=== PATIENT | female | born 1945 | race Caucasian/White ===

== ENCOUNTER 2016-06-25 09:53 | Inpatient (IN) | payer MEDICARE ==
[2016-06-25] VITALS (19 sets, daily range): BP systolic 132–251; BP diastolic 54–116; PULSE 74–106; RESP 10–24; TEMP 95.9–98.4; O2SAT 96–100
[~2016-06-25] VITALS: Ht 170.2 cm; Wt 70.4 kg
[~2016-06-25 09:53] MED LIST: CEPH500C3 PO
[2016-06-25] MEDS ORDERED: ETOMIDATE 20 MG/10 ML VIAL ONE (10:02)
[2016-06-25] MEDS ORDERED: PROPOFOL 1000 MG/100 ML INJ 100 ML ONE (10:02)
[2016-06-25 10:14] LABS: I-STAT SODIUM 138 MMOL/L (138-146)
[2016-06-25 10:15] LABS: AUTOMATED NEUTROPHIL # 11.8 TH/MM3 (1.8-7.7); BASOPHIL # 0.2 TH/MM3 (0-0.2); EOSINOPHIL # 0.6 TH/MM3 (0-0.4); EOSINOPHIL % 3.2 % (0.0-4.0); HEMO FLAGS DIFF FINAL; LYMPH % 27.4 % (9.0-44.0); LYMPHOCYTE # 5.1 TH/MM3 (1.0-4.8); MEAN CELL VOLUME 101.2 FL (80.0-100.0); MEAN CORPUSCULAR HEMOGLOBIN 34.5 PG (27.0-34.0); MEAN CORPUSCULAR HGB CONC 34.1 % (32.0-36.0); MONO % 5.2 % (0.0-8.0); NEUT % 63.2 % (16.0-70.0); PLATELET COUNT 364 TH/MM3 (150-450); RED BLOOD COUNT 3.76 MIL/MM3 (4.00-5.30); RED CELL DISTRIBUTION WIDTH 14.4 % (11.6-17.2); WHITE BLOOD COUNT 18.7 TH/MM3 (4.0-11.0)
[2016-06-25] MEDS ORDERED: ETOMIDATE 20 MG/10 ML VIAL IV PUSH ONE (10:15)
[2016-06-25] MEDS ORDERED: PROPOFOL 1000 MG/100 ML INJ 100 ML IV SCH ×5 (10:15→15:30)
[2016-06-25] MEDS ORDERED: niCARdipine INJ 25 MG in SODIUM CHLOR 0.9% 250 ML INJ 250 ML IV SCH (10:15)
[2016-06-25 10:26] LABS: APTT (PATIENT) 25.9 SEC (24.3-30.1); INTERNATIONAL NORMALIZED RATIO 0.9 RATIO
--- NOTE | 2016-06-25 10:33 | PD ---
HPI Chief Complaint: Stroke Alert Time Seen by Provider: 10:00 Travel History International Travel<30 days: No (unable to obtain) Contact w/Intl Traveler<30days: No (unable to obtain) Traveled to known affect area: No (unable to obtain) History of Present Illness HPI 70-year-old female was brought in by EMS for stroke alert. Patient was sitting with her friends at her condo and started complaining of headache. Patient started having slow speech and right-sided weakness subsequently. EMS was called. Patient was brought to the ED for evaluation. Patient started having decreasing in mentation and speech on the way to the ED. Patient unresponsive upon arrival to the ED. Unable to obtain past medical history except possible history of hypertension. PFSH Past Medical History Menopausal: Yes Past Surgical History Hysterectomy: Yes Social History Alcohol Use: Yes (OCCASIONAL) Tobacco Use: Yes (1 PPD) Allergies-Medications (Allergen,Severity, Reaction): Coded Allergies: No Known Allergies (Unverified , 12/31/15) Reported Meds & Prescriptions Reported Meds & Active Scripts Active Keflex (Cephalexin Monohydrate) 500 Mg Cap 500 Mg PO QID Review of Systems ROS Limitations: Altered Mental Status, Unresponsive Physical Exam Narrative GENERAL: Well-nourished, well-developed patient. SKIN: Warm and dry. HEAD: Normocephalic. EYES: No scleral icterus. No injection or drainage. Pupils are pinpoint, sluggishly reactive. NECK: Supple, trachea midline. No JVD or lymphadenopathy. CARDIOVASCULAR: Regular rate and rhythm without murmurs, gallops, or rubs. RESPIRATORY: Breath sounds equal bilaterally. No accessory muscle use. GASTROINTESTINAL: Abdomen soft, non-tender, nondistended. MUSCULOSKELETAL: No cyanosis, or edema. BACK: No obvious deformity. Neurologic exam: Patient is unresponsive. Pupils pinpoint and sluggish reactive. Patient has occasional movement of the head and left arm. Deep tendon reflexes 1+ and equal. Positive Babinski bilaterally. Data Data Last Documented VS Vital Signs Date Time Temp Pulse Resp B/P Pulse Ox O2 Delivery O2 Flow Rate FiO2 06/25/16 10:55 100 Ventilator 40 06/25/16 10:00 10 5 06/25/16 09:55 106 251/116 Orders Diet Npo (06/25/16 Lunch) Activity Bed Rest (06/25/16 ) Electrocardiogram (06/25/16 ) I-Stat Creatinine (06/25/16 10:01) I-Stat Profile (06/25/16 10:01) Prothrombin Time / Inr (Pt) (06/25/16 10:01) Act Partial Throm Time (Ptt) (06/25/16 10:01) Complete Blood Count With Diff (06/25/16 10:01) Fibrinogen (06/25/16 10:01) Creatine Kinase (Cpk) (06/25/16 10:01) Troponin I (06/25/16 10:01) Ua Includes Microscopic (06/25/16 10:01) Drug Screen, Random Urine (06/25/16 10:01) Type And Screen (06/25/16 10:01) Ct Brain W/O Iv Contrast(Rout) (06/25/16 ) Beta Hcg (Quant/Titer) (06/25/16 10:01) Consult Neurology (06/25/16 ) Blood Glucose (06/25/16 10:01) Ecg Monitoring (06/25/16 10:01) Neuro Checks Q2HX12,Q4H (06/25/16 10:01) Nursing Bedside Swallow Assess .ONCE (06/25/16 10:01) Iv Access Insert/Monitor (06/25/16 10:01) NPO (06/25/16 10:01) Oximetry (06/25/16 10:01) Oxygen Administration (06/25/16 10:01) Resp Oxygen Lee C Titrat 1-4 L (06/25/16 10:01) Cath For Specimen (06/25/16 10:01) Etomidate Inj (Amidate Inj) (06/25/16 10:15) Propofol 1000 Mg/100 Ml Inj (Diprivan 10 (06/25/16 10:15) Propofol 1000 Mg/100 Ml Inj (Diprivan 10 (06/25/16 10:15) ^ Infusion (06/25/16 10:01) Propofol 1000 Mg/100 Ml Inj (Diprivan 10 (06/25/16 10:15) ^ Infusion (06/25/16 10:01) RASS (06/25/16 10:01) Neurological Rass Scale GIBSON.Q2H (06/25/16 10:01) Nicardipine Inj (Cardene Inj) (06/25/16 10:15) Propofol 1000 Mg/100 Ml Inj (Diprivan 10 (06/25/16 10:02) Etomidate Inj (Amidate Inj) (06/25/16 10:02) (Hub Use Only)Inp Phy Cons/Ref (06/25/16 ) Urinary Catheter Insert/Apply (06/25/16 10:34) Andrea-Gastric Tube Insert/Mon (06/25/16 10:34) Mannitol Inj (Osmitrol Inj) (06/25/16 11:00) Labs Laboratory Tests Test 06/25/16 09:57 White Blood Count 18.7 TH/MM3 Red Blood Count 3.76 MIL/MM3 Hemoglobin 12.9 GM/DL Bedside Hemoglobin 13.3 G/DL Hematocrit 38.0 % Bedside Hematocrit 39.0 % Mean Corpuscular Volume 101.2 FL Mean Corpuscular Hemoglobin 34.5 PG Mean Corpuscular Hemoglobin 34.1 % Concent Red Cell Distribution Width 14.4 % Platelet Count 364 TH/MM3 Mean Platelet Volume 9.6 FL Neutrophils (%) (Auto) 63.2 % Lymphocytes (%) (Auto) 27.4 % Monocytes (%) (Auto) 5.2 % Eosinophils (%) (Auto) 3.2 % Basophils (%) (Auto) 1.0 % Neutrophils # (Auto) 11.8 TH/MM3 Lymphocytes # (Auto) 5.1 TH/MM3 Monocytes # (Auto) 1.0 TH/MM3 Eosinophils # (Auto) 0.6 TH/MM3 Basophils # (Auto) 0.2 TH/MM3 CBC Comment DIFF FINAL Differential Comment Prothrombin Time 10.0 SEC Prothromb Time International 0.9 RATIO Ratio Activated Partial 25.9 SEC Thromboplast Time Fibrinogen 327 mg/dL Bedside Sodium 138 MMOL/L Bedside Potassium 3.0 MMOL/L Bedside Chloride 106 MMOL/L Bedside Blood Urea Nitrogen 21 MG/DL Bedside Creatinine 1.2 MG/DL Bedside Glucose 262 MG/DL Total Creatine Kinase 41 U/L Troponin I LESS THAN 0.02 NG/ML Human Chorionic Gonadotropin, 2 MIU/ML Quant Blood Type AB POSITIVE Antibody Screen NEGATIVE Blood Bank Comment [facility] Medical Decision Making Medical Screen Exam Complete: Yes Emergency Medical Condition: Yes Interpretation(s) EKG shows sinus rhythm occasional PVCs. 10:[address] scan of the brain shows multicompartment hemorrhage mainly intraventricular and posterior fossa. Possible evolving infarct brainstem structure. Differential Diagnosis Differential diagnosis including TIA, CVA, dehydration, electrolyte imbalance, sepsis. Narrative Course 70-year-old female with headache, slurred speech, right-sided weakness, became unresponsiveness subsequently. Patient's hypertensive. Patient was intubated in the ED. Propofol drip started. Cardizem drip started. Critical Care Narrative Aggregate critical care time was 60 minutes. Time to perform other separately billable procedures was not included in the critical care time. My time did not include minutes spent treating any other patients simultaneously or on activities that did not directly contribute to the patient's treatment. The services I provided to this patient were to treat and/or prevent clinically significant deterioration that could result in: I provided critical care services requiring my management, as noted below: Chart data review, documentation time, medication orders and management, vital sign assessments/reviewing monitor data, ordering and reviewing lab tests, ordering and interpreting/reviewing x-rays and diagnostic studies, care of the patient and discussion of the patient with the admitting physicians. Procedures Procedure Narrative After the risks and benefits were discussed the following procedure was performed: INTUBATION: The patient was put in optimal position for the procedure. Rapid sequence intubation was initiated by me using 20 milligrams of etomidate IV . The patient was intubated with a 8 cuffed endotracheal tube. Tube placement was confirmed by visualization of the tube and balloon passing through the cords , capnometry and subsequent chest x-ray. Breath sounds were equal and well aerated bilaterally postintubation. No breath sounds over stomach. Patient tolerated procedure well. Diagnosis Primary Impression: Intracranial hemorrhage Additional Impressions: Hypertensive crisis Respiratory failure Qualified Code: J96.00 - Acute respiratory failure, unspecified whether with hypoxia or hypercapnia Admitting Information Admitting Physician Requests: Admit Ahsan Lucas MD Jun 25, 2016 10:33
[2016-06-25 10:34] LABS: BETA HCG QUANT 2 MIU/ML (0-5)
[2016-06-25 10:38] LABS: CREATINE KINASE 41 U/L (26-192)
--- NOTE | 2016-06-25 10:52 | RADRPT ---
EXAM DATE/TIME: 06/25/2016 10:14 [facility] COMPARISON: No previous studies available for comparison. INDICATIONS : Stroke alert, headache, slurred speech, bilateral extremity weakness. RADIATION DOSE: 56.35 CTDIvol (mGy) This report was called by Nany to Dr. Lucas at 1022 MEDICAL HISTORY : None SURGICAL HISTORY : None. ENCOUNTER: Initial ACUITY: 1 day PAIN SCALE: Non-responsive LOCATION: cranial TECHNIQUE: Multiple contiguous axial images were obtained of the head. Using automated exposure control and adj ustment of the mA and/or kV according to patient size, radiation dose was kept as low as reasonably a chievable to obtain optimal diagnostic quality images. FINDINGS: There is hemorrhage present within the lateral, third and fourth ventricles in addition to subarachno id blood in the posterior fossa. Also potentially parenchymal hemorrhages in the cerebellar hemispher es. There is blood in the foramen magnum. The brainstem is moderately hypodense throughout raising co ncern for infarction. The supratentorial brain is additionally notable for patchy moderate diminished attenuation in periventricular white matter which may be chronic. The extracranial structures are grossly benign and intact. CONCLUSION: Grossly abnormal brain appearance with multicompartment hemorrhage, mainly intraventricular and poste rior fossa. Diffusely diminished attenuation of the brainstem structures concerning for evolving infa rction. Followup evaluation, ideally with contrasted brain MRI and MRA would be recommended to assist with ch aracterization of the findings. Eduardo Ayon MD on June 25, 2016 at 10:22 Board Certified Radiologist. This report was verified electronically.
[2016-06-25] MEDS ORDERED: MANNITOL INJ 500 ML IV ONE (11:00)
[2016-06-25] MEDS ORDERED: MANNITOL INJ 50 ML ONE ×2 (11:08→11:26)
[2016-06-25] MEDS ORDERED: BUPIVACAINE/EPINEPHRINE 0.5% 50 ML VIAL ONE (11:25)
[2016-06-25] MEDS ORDERED: THROMBIN (TOPICAL) 5,000 UNIT VIAL ONE (11:26)
[2016-06-25] MEDS ORDERED: GENTAMICIN SULFATE 80 MG/2 ML VIAL ONE (11:26)
[2016-06-25] MEDS ORDERED: GELFOAM SIZE 100 ONE (11:26)
--- NOTE | 2016-06-25 11:40 | EKG ---
Date Performed: 06/25/2016 Time Performed: 09:56:29 PTAGE: 70 years EKG: Sinus rhythm WITH OCCASIONAL VENTRICULAR PREMATURE COMPLEXES Mild nonspecific ST-T wave changes BORDERLINE ECG CO MPARED TO PRIOR ELECTROCARDIOGRAM, Premature ectopic beats and mild ST segment changes are present. PREVIOUS TRACING : 05/25/2011 13.39 DOCTOR: Vasu Odell Interpretating Date/Time 06/25/2016 11:38:38
[2016-06-25 11:44] LABS: BLOOD, URINE SMALL (NEG); GLUCOSE,URINE 300 mg/dL (NEG); KETONE, URINE NEG (NEG); NITRITE,URINE NEG (NEG); PH, URINE 7.5 (5.0-8.5); URINE COLOR LIGHT-YELLOW (YELLW/STRAW)
[2016-06-25 11:51] LABS: AMPHETAMINE, URINE NEG (NEG); BARBITURATES, URINE NEG (NEG); COCAINE, URINE NEG (NEG)
--- NOTE | 2016-06-25 11:57 | HHI.HP ---
[facility] Service Critical Care Medicine Primary Care Physician Unknown Admission Diagnosis intracranial hemorrhage. Hypertensive crisis. Diagnosis: (1) Intracranial hemorrhage Diagnosis: Principal (2) Hypertensive crisis Diagnosis: Principal (3) Respiratory failure Diagnosis: Principal (4) Leukocytosis Diagnosis: Principal (5) Hypokalemia Diagnosis: Principal (6) Hyperglycemia Diagnosis: Principal (7) Tobacco abuse Diagnosis: Principal (8) ETOHism Diagnosis: Principal (9) Macrocytosis Diagnosis: Principal Chief Complaint: Altered Mental status Travel History International Travel<30 Days: No (unable to obtain) Contact w/Intl Traveler <30 Da: No (unable to obtain) Traveled to Known Affected Are: No (unable to obtain) History of Present Illness This is a 70-year-old female. Date of admission 06/25/2016. Asked medical history includes hypertension, prior CVA 4 years ago. According to friends at bedside, patient smokes one pack per day and has been drinking alcohol recently. She does not take any home medications. She presents to [facility] ED for stroke alert. She was last seen in her normal state of health approximately 9 AM. Patient was sitting with her friends at her condo and started complaining of headache. Patient started having slow slurred speech and right-sided weakness subsequently. EMS was called. Patient was brought to the ED for evaluation. Patient started having decreasing in mentation and speech on the way to the ED. Patient unresponsive upon arrival to the ED. Patient received 20 mg etomidate and was emergently intubated by ED physician. CT head performed stat revealed blood in the lateral, third and fourth ventricles, subarachnoid hemorrhage in the posterior fossa and blood and the foramen magnum. Neurosurgery was consulted and plans to go to the OR. 100 g of mannitol provided stat 1. Cardene drip initiated to maintain a systolic blood pressure less than 150. Upon examination, patient has a day, pinpoint sluggish pupils and withdraws to pain left greater right upper and lower extremity Review of Systems ROS Limitations: Intubated Past Family Social History Allergies: Coded Allergies: No Known Allergies (Unverified , 12/31/15) Past Medical History Hypertension Past Surgical History Hysterectomy Reported Medications None Active Ordered Medications Reviewed in EMR Family History Mother and father is noncontributory. Social History 1 pack per day tobacco. Positive EtOH use. Physical Exam Vital Signs Vital Signs Date Time Temp Pulse Resp B/P Pulse Ox O2 Delivery O2 Flow Rate FiO2 06/25/16 11:15 76 14 164/73 100 Ventilator 40 06/25/16 11:04 40 06/25/16 11:03 100 Ventilator 40 06/25/16 10:55 100 Ventilator 40 06/25/16 10:45 86 14 165/77 100 Ventilator 40 06/25/16 10:29 100 100 06/25/16 10:29 100 40 06/25/16 10:15 97.6 82 14 225/102 100 Ventilator 40 06/25/16 10:00 10 97 Nasal Cannula 5 06/25/16 09:55 106 10 251/116 96 Physical Exam GENERAL: 70-year-old female, critically ill currently orotracheally intubated SKIN: Warm and dry. No rash HEAD: Atraumatic. Normocephalic. EYES: Pupils equal and round around 2 mm bilaterally and sluggish. No scleral icterus. No injection or drainage. ENT: No nasal bleeding or discharge. Mucous membranes pink and moist. NECK: Trachea midline. No JVD. CARDIOVASCULAR: Regular rate and rhythm. S1, S2. Faint 1/6 systolic murmur RESPIRATORY:. Clear to auscultation. Breath sounds equal bilaterally. GASTROINTESTINAL: Abdomen soft, non-tender, nondistended. Hypoactive bowel sounds are appreciated MUSCULOSKELETAL: Extremities without significant peripheral edema. No obvious deformities. NEUROLOGICAL: Appears to have a right facial droop. Pupils are pinpoint and minimally reactive/sluggish bilateral. Positive gag. Withdraws to pain and left upper greater than right upper extremity. Upper toes. Laboratory Laboratory Tests Test 06/25/16 06/25/16 09:57 10:50 White Blood Count 18.7 Red Blood Count 3.76 Hemoglobin 12.9 Bedside Hemoglobin 13.3 Hematocrit 38.0 Bedside Hematocrit 39.0 Mean Corpuscular Volume 101.2 Mean Corpuscular Hemoglobin 34.5 Mean Corpuscular Hemoglobin 34.1 Concent Red Cell Distribution Width 14.4 Platelet Count 364 Mean Platelet Volume 9.6 Neutrophils (%) (Auto) 63.2 Lymphocytes (%) (Auto) 27.4 Monocytes (%) (Auto) 5.2 Eosinophils (%) (Auto) 3.2 Basophils (%) (Auto) 1.0 Neutrophils # (Auto) 11.8 Lymphocytes # (Auto) 5.1 Monocytes # (Auto) 1.0 Eosinophils # (Auto) 0.6 Basophils # (Auto) 0.2 CBC Comment DIFF FINAL Differential Comment Prothrombin Time 10.0 Prothromb Time International 0.9 Ratio Activated Partial 25.9 Thromboplast Time Fibrinogen 327 Bedside Sodium 138 Bedside Potassium 3.0 Bedside Chloride 106 Bedside Blood Urea Nitrogen 21 Bedside Creatinine 1.2 Bedside Glucose 262 Total Creatine Kinase 41 Troponin I LESS THAN 0.02 Human Chorionic Gonadotropin, 2 Quant Blood Type AB POSITIVE Antibody Screen NEGATIVE Blood Bank Comment Urine Color LIGHT-YELLOW Urine Turbidity CLEAR Urine pH 7.5 Urine Specific [place] 1.008 Urine Protein 300 Urine Glucose (UA) 300 Urine Ketones NEG Urine Occult Blood SMALL Urine Nitrite NEG Urine Bilirubin NEG Urine Urobilinogen LESS THAN 2.0 Urine Leukocyte Esterase NEG Urine RBC 13 Urine WBC 1 Microscopic Urinalysis Comment Urine Opiates Screen NEG Urine Barbiturates Screen NEG Urine Amphetamines Screen NEG Urine Benzodiazepines Screen NEG Urine Cocaine Screen NEG Urine Cannabinoids Screen NEG Result Diagram: 06/25/16 0957 Imaging Last Impressions Head CT 06/25/16 0000 Signed Impressions: Service Date/Time: June 10:14 - CONCLUSION: Grossly abnormal brain appearance with multicompartment hemorrhage, mainly intraventricular and posterior fossa. Diffusely diminished attenuation of the brainstem structures concerning for evolving infarction. Followup evaluation, ideally with contrasted brain MRI and MRA would be recommended to assist with characterization of the findings. Eduardo Ayon MD Assessment and Plan Assessment and Plan Neuro/Psych: Acute intracranial hemorrhage - lateral, third and fourth ventricles Subarachnoid hemorrhage posterior fossa with blood and the foramen magnum EtOH Patient is currently on propofol/fentanyl for sedation/analgesia while intubated Goal of RASS -2 Daily sedation vacation when okay with neurosurgery CT head revealed blood in the lateral, third and fourth ventricle. Subarachnoid hemorrhage within the posterior fossa and blood in the foramen magnum. Received 100 g mannitol in ED. Neurosurgery/Dr. Luo to or now Mannitol 12.5 every 8/3% saline at 20 cc now. Gohlke sodium 150-155 and serum osm ~ 310 Thiamine/multivitamin and folate daily for EtOH. CV: Hypertensive emergency History of hypertension Patient currently on Cardene drip to maintain systolic blood pressure less than 150 Check 2-D echocardiogram. As needed labetalol in attempt to wean off Cardene drip. Patient not on any home antihypertensives. Resp: Acute respiratory failure secondary to hemorrhagic CVA Tobaccoism ACV 16/500/5/100 Ventilator bundle Bronchodilator therapy as needed Tobacco cessation education was provided when appropriate Chest x-ray on admission revealed no acute cardio pulmonary findings GI: Initiate tube feeding with vital 1.5 goal 50 cc an hour. Protonix for GI prophylaxis while intubated Colace/as needed Senokot for bowel regimen : Tovar be placed for accurate I's and O's in critically ill patient Endo: Hyperglycemia Sliding-scale insulin with Accu-Cheks every 6 to maintain euglycemia. Median regimen. Follow-up on hemoglobin A1c Renal: Acute kidney injury creatinine 1.2 Patient will be hydrated with normal saline at 84 cc an hour. Monitor Urine output closely. Avoid nephrotoxic drugs Heme: Leukocytosis Macrocytosis Likely leukemoid type reaction. Monitor CBC in a.m. Coags normal Investigate macrocytosis with B12, folate and TSH and peripheral smear if indicated. ID: Monitor for infection UA reveals no etiology FEN: Hypokalemia Replace electrolytes per ICU electrolyte protocol. MSK: PT/OT evaluate and treat Critical Care: The total critical care time was 55 minutes. Time to perform other separately billable procedures was not included in the critical care time. Code Status Full code Discussed Condition With Dr. Lucas/ED physician. Care plan discussed. All questions answered. Problem Qualifiers (1) Respiratory failure: Qualified Code: J96.00 - Acute respiratory failure, unspecified whether with hypoxia or hypercapnia (2) Leukocytosis: Qualified Code: D72.829 - Leukocytosis, unspecified type Kareem Zavala MD Jun 25, 2016 11:57
[2016-06-25] MEDS ORDERED: POTASSIUM PHOSPHATE MONOBASIC 500 MG TAB PO/TUBE PRN (12:00)
[2016-06-25] MEDS ORDERED: MAGNESIUM OXIDE 400 MG TAB PO PRN (12:00)
[2016-06-25] MEDS ORDERED: ePHEDrine/NS 50 MG/5 ML SYR IV ONE (12:00)
[2016-06-25] MEDS ORDERED: SODIUM PHOSPHATE INJ 30 MMOL in SODIUM CHLOR 0.9% 250 ML INJ 240 ML IV PRN (12:00)
[2016-06-25] MEDS ORDERED: POTASSIUM PHOSPHATE INJ 30 MMOL in SODIUM CHLOR 0.9% 250 ML INJ 250 ML IV PRN (12:00)
[2016-06-25] MEDS ORDERED: MAGNESIUM SULFATE INJ 4 GM in SODIUM CHLORIDE 0.9% INJ 92 ML IV PRN (12:00)
[2016-06-25] MEDS ORDERED: MAGNESIUM SULFATE INJ 2 GM in SODIUM CHLORIDE 0.9% INJ 96 ML IV PRN (12:00)
[2016-06-25] MEDS ORDERED: ONDANSETRON HCL 4 MG/2 ML VIAL IV PRN (12:00)
[2016-06-25] MEDS ORDERED: ONDANSETRON HCL 4 MG/2 ML VIAL IV PUSH ONE (12:00)
[2016-06-25] MEDS ORDERED: SODIUM CHLORIDE 0.9% FLUSH 5 ML FLUSH IV FLUSH PRN (12:00)
[2016-06-25] MEDS ORDERED: POTASSIUM CL 40 MEQ/30 ML LIQ UDC PO/TUBE PRN ×2 (12:00)
[2016-06-25] MEDS ORDERED: POTASSIUM CHLOR 40 MEQ PREMIX 100 ML IV PRN ×2 (12:00)
[2016-06-25] MEDS ORDERED: CHLORHEXIDINE GLUCONATE 2 % 1 PACK (2 CLOTHS) TOP PRN (12:00)
[2016-06-25] MEDS ORDERED: ACETAMINOPHEN 325 MG TAB PO PRN (12:00)
[2016-06-25] MEDS ORDERED: SENNOSIDES SYRUP 8.8 MG/5 ML CUP G-TUBE PRN (12:00)
[2016-06-25] MEDS ORDERED: POTASSIUM CHLOR 20 MEQ PREMIX 100 ML IV PRN ×3 (12:00→15:30)
[2016-06-25] MEDS ORDERED: POTASSIUM PHOSPHATE MONOBASIC 500 MG TAB PO PRN (12:00)
[2016-06-25] MEDS ORDERED: PHENYLEPH/NS 1000 MCG/10 ML SYR IV ONE (12:00)
[2016-06-25] MEDS ORDERED: GLUCAGON 1 MG/ML VIAL OTHER PRN (12:00)
[2016-06-25] MEDS ORDERED: DEXTROSE 50% IN WATER 50 ML VIAL(D50) IV PUSH PRN (12:00)
[2016-06-25] MEDS ORDERED: RESP: ALBUTEROL 2.5 MG/IPRATROPIUM 0.5 MG NEB (PRN) INH (12:00)
[2016-06-25] MEDS ORDERED: PROPOFOL 200 MG/20 ML AMP IV ONE (12:00)
[2016-06-25] MEDS ORDERED: MISCELLANEOUS NURSING INFORMATION XX SCH (12:00)
[2016-06-25] MEDS ORDERED: LABETALOL HCL 100 MG/20 ML VIAL IV PUSH PRN (12:15)
[2016-06-25] MEDS ORDERED: VANCOMYCIN HCL 1000 MG VIAL ONE (12:54)
[2016-06-25] MEDS ORDERED: levETIRAcetam INJ 500 MG in SODIUM CHLORIDE 0.9% INJ 100 ML IV ONE (13:00)
[2016-06-25] MEDS: ARTIFICIAL TEARS OPTH SOLN 15 ML BTL EACH EYE SCH ×2 (13:00→18:00)
[2016-06-25] MEDS: SODIUM CHLOR 0.9% 1000 ML INJ 1,000 ML IV SCH (13:00)
[2016-06-25] MEDS: THIAMINE INJ 100 MG in SODIUM CHLORIDE 0.9% INJ 100 ML IV SCH (14:00)
[2016-06-25] MEDS: INSULIN NovoLIN REGULAR SUPPLEMENTAL SCALE SQ SCH ×2 (15:10→18:00)
[2016-06-25] MEDS ORDERED: PROMETHAZINE INJ 25 MG/ML VIAL IM PRN (15:30)
[2016-06-25] MEDS ORDERED: cloNIDine HCL 0.1 MG TAB PO PRN (15:30)
[2016-06-25] MEDS ORDERED: LABETALOL HCL 100 MG/20 ML VIAL IV PRN (15:30)
[2016-06-25] MEDS ORDERED: LORazepam 2 MG/ML VIAL IVP PRN (15:30)
[2016-06-25] MEDS ORDERED: fentaNYL CITRATE 250 MCG/5 ML AMP ONE (15:30)
[2016-06-25] MEDS ORDERED: MAGNESIUM SULFATE INJ 2 GM in SODIUM CHLORIDE 0.9% INJ 100 ML IV PRN (15:30)
[2016-06-25] MEDS ORDERED: MAGNESIUM HYDROXIDE SUSP 30 ML CUP PO PRN (15:30)
[2016-06-25] MEDS ORDERED: ALUMINUM/MAGNESIUM/SIMETH 30 ML CUP PO PRN (15:30)
[2016-06-25] MEDS ORDERED: BISACODYL 10 MG SUPP PR PRN (15:30)
[2016-06-25] MEDS ORDERED: CALCIUM GLUCONATE INJ 1 GM in SODIUM CHLORIDE 0.9% INJ 100 ML IV PRN (15:30)
[2016-06-25] MEDS ORDERED: SODIUM CHLORIDE 0.9% FLUSH 5 ML FLUSH IVF PRN (15:30)
[2016-06-25 15:35] LABS: BLOOD GAS BASE EXCESS -5.2 mmol/L (-2-2); BLOOD GAS CARBOXYHEMOGLOBIN 2.1 % (0-4); BLOOD GAS HCO3 20 mmol/L (22-26); BLOOD GAS METHEMOGLOBIN 1.2 % (0-2); BLOOD GAS O2 HGB SATURATION 96 % (90-100); BLOOD GAS OXYGEN CONTENT 13.9 Vol % (12.0-20.0); BLOOD GAS PCO2 40 mmHg (38-42); BLOOD GAS PO2 136 mmHg (61-120); BLOOD GAS TOTAL HGB 10.2 G/DL (12.0-16.0); CRITICAL VALUE NO; DRAW SITE ART LINE; FIO2 40 %; OXYGEN DEVICE VENTILATOR; TEMP CORR TO 98.6
--- NOTE | 2016-06-25 15:35 | PD.OP ---
Operative Report Date of Surgery: Jun 25, 2016 Preoperative Diagnosis: Large cerebellar hemorrhage with intraventricular extension and associated hydrocephalus Postoperative Diagnosis: Same Procedure: Suboccipital craniectomy with cerebellar hemorrhage evacuation; right frontal mat hole ventriculostomy placement; microsurgical technique Anesthesia: Gen. endotracheal by Guy Morales Surgeon: Keon Luo M.D. Servomechanism Designer(s): Rebecca Coronado Operation and Findings: Following administration of general endotracheal anesthesia, a gram of vancomycin intravenously was administered and patient received mannitol prior to this. After invasive lines were placed she was turned on a prone position on chest rolls and the head secured with a 3 pin Moore headrest with the neck slightly flexed. The posterior occipital region was then shaved and prepped with ChloraPrep and sterilely draped. A linear incision was then made after infiltrating the scalp with 0.5% Marcaine with epinephrine incision extending down through the galea. The occipital fascia also incised and the muscle fibers split in the midline avascular plane and detached from the occipital bone down to the foramen magnum. A superior cuff of this occipital muscle and fascia was also left in place for later closure. Using an M2 drill bar craniectomy was undertaken and bone wax at the edges for hemostasis. The dura was opened in a Y-shaped format. Further dissection was undertaken using microtechnique with microscope magnification. A corticectomy was made in the cerebellar vermis and more superiorly organized hematoma along with the hemolyzed blood was encountered under significant pressure. The hematoma was evacuated and and CSF also drained from the cisterna magna to decompress the posterior fossa. The hematoma bed was then cauterized with bipolar cautery and Gelfoam and thrombin also used for hemostasis. The cerebellar vermis and hemispheres are more relaxed and pulsatile at this point. The dura wasn't approximate using 4 Nurolon interrupted sutures in a watertight fashion. Compressed Gelfoam along with the of BioGlue was used for reinforcement of the durotomy. The bone dust from the craniectomy was then packed reconstructing the cranial defect. The area prior to this copiously irrigated. The muscle fascia was approximated using 2-0 Vicryl in a sutures in the galea partially using 2-0 Vicryl in a stitches and finds concords with ronaldo. A sterile dressing was then applied and she was in turn in a supine position and the Moore headrest removed. The right frontal region was then shaved and prepped with ChloraPrep and sterilely draped. Using landmarks of 11 cm behind the nasion and 3 cm right of the midline a 2 cm scalp incision was made after infiltrating with 0.5% Marcaine with epinephrine solution. Using the drill bit the bur hole was made and the underlying dura also opened. Bactiseal ventriculostomy catheter was then passed into the lateral ventricle using ipsilateral pupillary midline and the external auditory meatus is landmarks and blood-tinged CSF was expressed with opening pressure this point 14 cm of water. The distal end of the catheter was tunneled with a trocar and secured the exit site and the scalp incision was approximated using 4-0 nylon interrupted stitches. Sterile pressure dressing was then applied and she was then taken to recovery room. There were no intraoperative complications and all sponge and needle count was correct at the end of the procedure. Estimated blood loss 100 cc. Keon Luo MD Jun 25, 2016 15:35
[2016-06-25 15:36] LABS: STAT NO
[2016-06-25] MEDS ORDERED: *LABETALOL HCL 100 MG/20 ML VIAL PERIprocedural Use ONLY ONE (15:41)
[2016-06-25] MEDS ORDERED: DO NOT ADM ANY ANTICOAGULANT DRUGS XX PRN (16:00)
--- NOTE | 2016-06-25 16:24 | RADRPT ---
EXAM DATE/TIME: 06/25/2016 15:15 [facility] COMPARISON: No previous studies available for comparison. INDICATIONS : Central Line Placement MEDICAL HISTORY : None. SURGICAL HISTORY : None. ENCOUNTER: Initial ACUITY: 1 day PAIN SCORE: 0/10 LOCATION: Bilateral chest FINDINGS: A single view of the chest demonstrates endotracheal tube in satisfactory position. NG enters stomach . Right central line in superior vena cava. Minimal subsegmental airspace disease at the bases. No ef fusions. No pneumothorax. CONCLUSION: 1. Support apparatus in satisfactory position. Minimal basilar atelectasis. No pneumothorax with the right central line in superior vena cava. Anant Castellano MD on June 25, 2016 at 16:20 Board Certified Radiologist. This report was verified electronically.
[2016-06-25] MEDS: niCARdipine INJ 25 MG in SODIUM CHLOR 0.9% 250 ML INJ 250 ML IV SCH ×2 (16:33→18:41)
[2016-06-25] MEDS: fentaNYL DRIP 250 ML IV SCH (16:34)
[2016-06-25] MEDS: 3% SALINE INJ 500 ML IV SCH (16:34)
[2016-06-25] MEDS: PROPOFOL 1000 MG/100 ML IV SCH (16:34)
[2016-06-25 16:45] LABS: AUTOMATED NEUTROPHIL # 14.2 TH/MM3 (1.8-7.7); BASOPHIL # 0.1 TH/MM3 (0-0.2); BASOPHIL % 0.4 % (0.0-2.0); EOSINOPHIL % 0.1 % (0.0-4.0); HEMATOCRIT 32.1 % (35.0-46.0); LYMPH % 10.8 % (9.0-44.0); LYMPHOCYTE # 1.8 TH/MM3 (1.0-4.8); MEAN CELL VOLUME 101.4 FL (80.0-100.0); MEAN CORPUSCULAR HEMOGLOBIN 34.3 PG (27.0-34.0); MEAN CORPUSCULAR HGB CONC 33.9 % (32.0-36.0); NEUT % 83.7 % (16.0-70.0); PLATELET COUNT 273 TH/MM3 (150-450); RED BLOOD COUNT 3.17 MIL/MM3 (4.00-5.30); RED CELL DISTRIBUTION WIDTH 14.5 % (11.6-17.2)
[2016-06-25 16:49] LABS: HEMO FLAGS AUTO DIFF
[2016-06-25 16:59] LABS: BICARBONATE 23.7 MEQ/L (21.0-32.0); MAGNESIUM 1.9 MG/DL (1.5-2.5); POTASSIUM 4.1 MEQ/L (3.5-5.1)
[2016-06-25 17:03] LABS: HDL CHOLESTEROL 54.5 MG/DL (40.0-60.0); LDL CHOLESTEROL 111 MG/DL (0-99); MAGNESIUM 2.1 MG/DL (1.5-2.5); SODIUM (NA) 138 MEQ/L (136-145)
[2016-06-25 17:32] LABS: BANDS 13 % (0-6); NEUTROPHIL # MANUAL DIFF 15.3 TH/MM3 (1.8-7.7); POLYS (SEG NEUTROPHILS) 77 % (16-70); WBC DIFF SAMPLE 100
[2016-06-25 17:33] LABS: PLATELET ESTIMATE SMEAR NORMAL (NORMAL); PLATELET MORPHOLOGY NORMAL (NORMAL); SCAN/DIFF FINAL DIFF MANUAL; TEARDROP RBCS 1+ (NORMAL)
--- NOTE | 2016-06-25 17:44 | MB ---
cc: CIERRA PERRY DATE OF CONSULTATION 06/25/16 REASON FOR CONSULTATION Cerebellar hemorrhage. HISTORY OF PRESENT ILLNESS A 70-year-old female who was brought to [facility] emergency room after she had an acute onset of headache with subsequent weakness and slurred speech and progressed to obtundation and was unresponsive in the emergency room requiring intubation and ventilator support. She was also very hypertensive on presentation with a blood pressure of 251/116. Following stabilization of her cardiopulmonary status, a CT scan of the head was obtained which reveals a large cerebellar hemorrhage with extension into the ventricles and a moderate hydrocephalus. There also appears to be hypodensity on the brainstem, a possible evolving infarction. Neurosurgery consultation was requested for assistance in the management of the intracranial hemorrhage. PAST MEDICAL HISTORY 1. Hypertension, 2. Hysterectomy, 3. Alcohol abuse MEDICATIONS NO KNOWN DRUG ALLERGIES. SOCIAL HISTORY She reportedly smokes a pack a day of cigarettes and also has been drinking more frequently lately. According to her friends, she does not have any relatives or health proxy that there are aware of. REVIEW OF SYSTEMS Unobtainable. The patient is comatose. LABORATORY FINDINGS Sodium 138, potassium 3.0, BUN 21, creatinine 1.2, glucose 262 White blood cell 18.7, hemoglobin 13.3, platelet count 364, PT 10, INR 0.9, PTT 25.9. Toxicology screen is negative. PHYSICAL EXAMINATION VITAL SIGNS: Temperature 97.6, pulse is 82, respiratory rate 14, blood pressure 165/77, oxygen saturations 100% on 40% FIO2 HEAD: Normocephalic, atraumatic. No Diallo's or raccoon sign. NECK: Supple. CHEST: Clear bilaterally HEART: Regular rate and rhythm, normal S1, S2. ABDOMEN: Soft, nontender. EXTREMITIES: No cyanosis, edema or deformity. NEUROLOGIC: She is intubated but does not open her eyes to painful stimulation. Pupils are very small and pinpoint. I could not obtain any corneal or cough reflex. There is slight withdrawal on the left upper extremity to central painful stimulation, but no spontaneous movement and does not follow any commands. GCS is 5T. IMPRESSION 1. Large cerebellar hemorrhage with intraventricular extension and brainstem compression associated with hydrocephalus. This appears to be very characteristic of a hypertensive bleed. 2. Unregulated hypertension 3. Respiratory failure. PLAN The patient will be taken to the operating room emergently for a suboccipital craniectomy with cerebellar hematoma evacuation as well as a ventriculostomy placement. Unfortunately, no family members are available so the procedure will be undertaken taking the patient's best interest into account. Her prognosis obviously appears to be grim at this point given her neurologic presentation and the devastating hemorrhage. She will subsequently be admitted to the Intensive Care Unit for hypertension regulation and also DVT mechanical prophylaxis and gastrointestinal stress ulcer prophylaxis. Further treatment plan depending on her evolution of her clinical course. MD CHENCHO Casanova/ /3:48 PM /5:29 PM
[2016-06-25 18:41] LABS: BLOOD GAS BASE EXCESS -4.1 mmol/L (-2-2); BLOOD GAS CARBOXYHEMOGLOBIN 1.7 % (0-4); BLOOD GAS HCO3 20 mmol/L (22-26); BLOOD GAS O2 HGB SATURATION 96 % (90-100); BLOOD GAS OXYGEN CONTENT 13.9 Vol % (12.0-20.0); BLOOD GAS PCO2 32 mmHg (38-42); BLOOD GAS PO2 120 mmHg (61-120); BLOOD GAS TOTAL HGB 10.2 G/DL (12.0-16.0); CRITICAL VALUE NO; DRAW SITE ART LINE; FIO2 40 %; OXYGEN DEVICE VENTILATOR; TEMP CORR TO 98.6; VENT SETTINGS PRVC/24/450/+5
[2016-06-25 18:42] LABS: STAT NO
[2016-06-25 18:45] LABS: HEMOGLOBIN A1b 0.7 %; HEMOGLOBIN Ao 85.8 %; HEMOGLOBIN F 0.8 %; HEMOGLOBIN LA1C 2.3 %; HEMOGLOBIN P3 3.9 %
[2016-06-25] MEDS: MANNITOL 12.5 GM/50 ML VIAL IV SCH (20:00)
[2016-06-25] MEDS ORDERED: SODIUM CHLORIDE 0.9% FLUSH 5 ML FLUSH IV FLUSH SCH (21:00)
[2016-06-25] MEDS: levETIRAcetam INJ 500 MG in SODIUM CHLORIDE 0.9% INJ 100 ML IV SCH (21:07)
[2016-06-25] MEDS: SODIUM CHLORIDE 0.9% FLUSH 5 ML FLUSH IVF SCH (21:08)
[2016-06-25] MEDS: DOCUSATE SODIUM 100 MG CAP PO SCH (21:08)
[2016-06-26] VITALS (18 sets, daily range): BP systolic 136–165; BP diastolic 46–75; PULSE 66–86; RESP 15–22; TEMP 96.6–99; O2SAT 100
[2016-06-26] MEDS: niCARdipine INJ 25 MG in SODIUM CHLOR 0.9% 250 ML INJ 250 ML IV SCH ×4 (01:51→15:55)
[2016-06-26] MEDS: CHLORHEXIDINE GLUCONATE 2 % 1 PACK (2 CLOTHS) TOP SCH (04:00)
[2016-06-26] MEDS: MANNITOL 12.5 GM/50 ML VIAL IV SCH ×3 (04:00→20:00)
[2016-06-26] MEDS: PROPOFOL 1000 MG/100 ML IV SCH ×2 (04:54→07:51)
[2016-06-26] MEDS: SODIUM CHLOR 0.9% 1000 ML INJ 1,000 ML IV SCH ×2 (04:54→12:50)
[2016-06-26 05:33] LABS: BLOOD GAS BASE EXCESS -3.9 mmol/L (-2-2); BLOOD GAS CARBOXYHEMOGLOBIN 1.1 % (0-4); BLOOD GAS HCO3 20 mmol/L (22-26); BLOOD GAS METHEMOGLOBIN 1.1 % (0-2); BLOOD GAS O2 HGB SATURATION 97 % (90-100); BLOOD GAS OXYGEN CONTENT 14.8 Vol % (12.0-20.0); BLOOD GAS PCO2 34 mmHg (38-42); BLOOD GAS PO2 175 mmHg (61-120); BLOOD GAS TOTAL HGB 10.6 G/DL (12.0-16.0); CRITICAL VALUE NO; OXYGEN DEVICE VENTILATOR; TEMP CORR TO 98.6
[2016-06-26 05:35] LABS: DRAW SITE ART LINE; FIO2 40 %; STAT NO; VENT SETTINGS PRVC/AC
[2016-06-26 05:36] LABS: BASOPHIL % 0.2 % (0.0-2.0); EOSINOPHIL % 0.1 % (0.0-4.0); HEMATOCRIT 30.3 % (35.0-46.0); HEMO FLAGS DIFF FINAL; LYMPH % 11.5 % (9.0-44.0); LYMPHOCYTE # 1.6 TH/MM3 (1.0-4.8); MEAN CELL VOLUME 101.7 FL (80.0-100.0); MEAN CORPUSCULAR HEMOGLOBIN 34.8 PG (27.0-34.0); MEAN CORPUSCULAR HGB CONC 34.2 % (32.0-36.0); MONO % 6.8 % (0.0-8.0); NEUT % 81.4 % (16.0-70.0); PLATELET COUNT 275 TH/MM3 (150-450); RED BLOOD COUNT 2.98 MIL/MM3 (4.00-5.30); RED CELL DISTRIBUTION WIDTH 14.8 % (11.6-17.2); WHITE BLOOD COUNT 13.6 TH/MM3 (4.0-11.0)
[2016-06-26] MEDS: INSULIN NovoLIN REGULAR SUPPLEMENTAL SCALE SQ SCH ×4 (06:00→18:00)
[2016-06-26 06:04] LABS: ALKALINE PHOSPHATASE 91 U/L (45-117); ALT (GPT) 21 U/L (10-53); ANION GAP 12 MEQ/L (5-15); AST (GOT) 16 U/L (15-37); BICARBONATE 21.2 MEQ/L (21.0-32.0); BLOOD UREA NITROGEN 17 MG/DL (7-18); CHLORIDE 114 MEQ/L (98-107); GLOMERULAR FILTRATION RATE 39 ML/MIN (>89); MAGNESIUM 1.9 MG/DL (1.5-2.5); POTASSIUM 3.4 MEQ/L (3.5-5.1); SODIUM (NA) 147 MEQ/L (136-145); TOTAL BILIRUBIN ADULT 1.1 MG/DL (0.2-1.0)
--- NOTE | 2016-06-26 06:33 | RADRPT ---
EXAM DATE/TIME: 06/26/2016 05:39 [facility] COMPARISON: CHEST SINGLE AP, June 25, 2016, 15:15. INDICATIONS : Please evaluate after respiratory failure. MEDICAL HISTORY : None. SURGICAL HISTORY : None. ENCOUNTER: Subsequent ACUITY: 3 days PAIN SCORE: Non-responsive. LOCATION: Bilateral chest FINDINGS: ET tube tip well above the ni. Gastric tube traverses the [id number]. Right internal jugular catheter tip projects over the mid superior vena cava. The lungs are clear. The heart is normal si ze. Both hemidiaphragms well delineated. CONCLUSION: Lines and tubes stable. The lungs are clear. Willem Coronado MD on June 26, 2016 at 6:31 Board Certified Radiologist. This report was verified electronically.
--- NOTE | 2016-06-26 06:38 | RADRPT ---
EXAM DATE/TIME: 06/26/2016 05:50 [facility] COMPARISON: CT BRAIN W/O CONTRAST, June 25, 2016, 10:14. INDICATIONS : Follow up intracerebral hemorrage. RADIATION DOSE: 66.80 CTDIvol (mGy) MEDICAL HISTORY : Non-responsive. SURGICAL HISTORY : Non-responsive. ENCOUNTER: Subsequent ACUITY: 2 days PAIN SCALE: Non-responsive LOCATION: cranial TECHNIQUE: Multiple contiguous axial images were obtained of the head. Using automated exposure control and adj ustment of the mA and/or kV according to patient size, radiation dose was kept as low as reasonably a chievable to obtain optimal diagnostic quality images. FINDINGS: Interval midline suboccipital craniotomy with gas at the surgical site midline cerebellum. Patchy ar eas of hemorrhage throughout the left and right cerebellar hemisphere are similar in distribution to prior. Prominent amount of intraventricular blood layering in the dilated lateral ventricular occipi rené horns and 3rd ventricle, similar to prior. Interval placement of ventriculostomy from a right fr ontal approach with the tip projected at the left foramen Monro. No midline shift. CONCLUSION: Interval placement of right ventriculostomy and suboccipital craniotomy. Cerebellar and intraventric ular hemorrhages stable. Willem Coronado MD on June 26, 2016 at 6:34 Board Certified Radiologist. This report was verified electronically.
[2016-06-26] MEDS: SODIUM CHLORIDE 0.9% FLUSH 5 ML FLUSH IVF SCH ×2 (07:24→21:00)
[2016-06-26] MEDS: PANTOPRAZOLE SODIUM 40 MG VIAL IV SCH (07:51)
[2016-06-26] MEDS: MULTIVITAMIN TAB PO SCH (07:51)
[2016-06-26] MEDS: THIAMINE INJ 100 MG in SODIUM CHLORIDE 0.9% INJ 100 ML IV SCH (07:51)
[2016-06-26] MEDS: DOCUSATE SODIUM 100 MG CAP PO SCH ×2 (07:51→21:31)
[2016-06-26] MEDS: FOLIC ACID 1 MG TAB PO SCH (07:52)
--- NOTE | 2016-06-26 08:54 | MB ---
cc: KEITH STEINBERG M.D. DATE OF CONSULTATION: 06/26/2016 REASON FOR CONSULTATION A 70-year-old seen in neurological consultation in regards to a stroke. HISTORY OF PRESENT ILLNESS The patient came in as a Stroke Alert yesterday and I spoke to the ED physician on a couple of occasions. She was found to have an intracranial hemorrhage and not a candidate for thrombolytic therapy. Indeed she was quickly taken to the OR by the neurosurgeon for decompressive surgery including ventriculostomy. She had a follow-up CT brain this morning. I saw both CT scans. Today's scan does not seem to be any better than the scan from yesterday, now showing postoperative change, extensive cerebellar hemorrhage and hydrocephalus. This patient yesterday developed headaches, slurred speech and right-sided weakness, and by the time she arrived in the emergency room she was unresponsive. Her symptoms evolved around 9 o'clock in the morning. I tried to see her on a couple of occasions but she was in the OR at that point. She apparently has a history of alcohol use and smokes. We do not have more details on her medical history. NEUROLOGICAL EXAMINATION On exam the patient is comatose. She is back on some Diprivan but during the night she was off Diprivan for three hours or so and she remained unresponsive. Her blood pressure started rising and she was back on sedation. She is on Cardene with a current blood pressure around 140-150 systolic. Her pupils are pinpoint. She is flaccid in all four extremities. Reflexes absent throughout. ASSESSMENT/RECOMMENDATION Large bilateral cerebellar hemorrhage with hydrocephalus. She was taken to the operating room yesterday and remains comatose. When off Diprivan, she did not show any suggestion of awakening but her blood pressure valdemar. She is status post suboccipital craniectomy and ventriculostomy. CT brain today is showing stability of her intracranial findings. Prognosis is rather bleak. Continue the supportive medical and neurosurgical care. Thank you for asking us to assist in her care. I will follow her peripherally as mostly she needs neurosurgical follow-up at this point. MD SILVA Stewart/ZANE /8:31 AM /8:47 AM
[2016-06-26] MEDS: ARTIFICIAL TEARS OPTH SOLN 15 ML BTL EACH EYE SCH ×3 (09:00→15:55)
[2016-06-26] MEDS: levETIRAcetam INJ 500 MG in SODIUM CHLORIDE 0.9% INJ 100 ML IV SCH ×2 (09:00→21:24)
--- NOTE | 2016-06-26 09:09 | HHI.NSPN ---
(Anthony Bryan) History Chief Complaint: S/p suboccipital craniectomy for ICH evacuation. (Anthony Bryan) Interval History A 70-year-old female who was brought to [facility] emergency room after she had an acute onset of headache with subsequent weakness and slurred speech and progressed to obtundation and was unresponsive in the emergency room requiring intubation and ventilator support. She was also very hypertensive on presentation with a blood pressure of 251/116. Following stabilization of her cardiopulmonary status, a CT scan of the head was obtained which reveals a large cerebellar hemorrhage with extension into the ventricles and a moderate hydrocephalus. There also appears to be hypodensity on the brainstem, a possible evolving infarction. Neurosurgery consultation was requested for assistance in the management of the intracranial hemorrhage. 06/26/15: Pt sedated on Diprivan and Fentanyl drips. Not opening eyes. Pupils 2mm bilaterally NR bilaterally. No response to pain in upper chest. Ventriculostomy in place ICP 1. (Anthony Bryan) System Review Comments Not able to obtain given clinical condition. (Anthony Bryan) Exam Results Vital Signs Date Time Temp Pulse Resp B/P Pulse Ox O2 Delivery O2 Flow Rate FiO2 06/26/16 06:00 82 06/26/16 04:10 100 40 06/26/16 04:00 98.4 22 145/48 06/25/16 17:19 Mechanical Ventilator 06/25/16 10:00 5.00 Intake and Output 06/25/16 06/25/16 06/26/16 08:00 16:00 00:00 Intake Total 700 ml 1982 ml Output Total 1550 ml 1620.0 ml Balance -850 ml 362.0 ml (Anthony Bryan) Physical Examination Resp: Intubated. PRVC A/C rate 20 Heart: NSR no murmurs. On Nicardipine drip. Abd: soft positive bs Skin: Head bandaged dry. Muscle: Not following for muscle testing. No response to pain in upper chest. Neuro: Pt sedated on Diprivan and Fentanyl drips. Not following commands. Pupils 2mm bilaterally NR bilaterally. Ventriculostomy drain in place at [id number]. ICP 1. Pt on 3% NS. (Anthony Bryan) Physical Examination No eye opening Pinpoint pupils Negative gag and cough reflex No motor response (Keon Luo MD) Lab, Micro, Other Results Last Impressions Head CT 06/26/16 0600 Signed Impressions: Service Date/Time: Sunday, June 26, 2016 05:50 - CONCLUSION: Interval placement of right ventriculostomy and suboccipital craniotomy. Cerebellar and intraventricular hemorrhages stable. Willem Coronado MD Chest X-Ray 06/26/16 0000 Signed Impressions: Service Date/Time: Sunday, June 26, 2016 05:39 - CONCLUSION: Lines and tubes stable. The lungs are clear. Willem Coronado MD Laboratory Tests Test 06/25/16 06/25/16 06/25/16 06/25/16 09:57 10:50 15:28 16:05 White Blood Count 18.7 TH/MM3 17.0 TH/MM3 Red Blood Count 3.76 MIL/MM3 3.17 MIL/MM3 Hemoglobin 12.9 GM/DL 10.9 GM/DL Bedside Hemoglobin 13.3 G/DL Hematocrit 38.0 % 32.1 % Bedside Hematocrit 39.0 % Mean Corpuscular Volume 101.2 FL 101.4 FL Mean Corpuscular Hemoglobin 34.5 PG 34.3 PG Mean Corpuscular Hemoglobin 34.1 % 33.9 % Concent Red Cell Distribution Width 14.4 % 14.5 % Platelet Count 364 TH/MM3 273 TH/MM3 Mean Platelet Volume 9.6 FL 9.3 FL Neutrophils (%) (Auto) 63.2 % 83.7 % Lymphocytes (%) (Auto) 27.4 % 10.8 % Monocytes (%) (Auto) 5.2 % 5.0 % Eosinophils (%) (Auto) 3.2 % 0.1 % Basophils (%) (Auto) 1.0 % 0.4 % Neutrophils # (Auto) 11.8 TH/MM3 14.2 TH/MM3 Lymphocytes # (Auto) 5.1 TH/MM3 1.8 TH/MM3 Monocytes # (Auto) 1.0 TH/MM3 0.9 TH/MM3 Eosinophils # (Auto) 0.6 TH/MM3 0.0 TH/MM3 Basophils # (Auto) 0.2 TH/MM3 0.1 TH/MM3 CBC Comment DIFF FINAL AUTO DIFF Differential Comment FINAL DIFF MANUAL Prothrombin Time 10.0 SEC Prothromb Time International 0.9 RATIO Ratio Activated Partial 25.9 SEC Thromboplast Time Fibrinogen 327 mg/dL Bedside Sodium 138 MMOL/L Sodium Level 138 MEQ/L 135 MEQ/L Bedside Potassium 3.0 MMOL/L Bedside Chloride 106 MMOL/L Bedside Blood Urea Nitrogen 21 MG/DL Bedside Creatinine 1.2 MG/DL Bedside Glucose 262 MG/DL Hemoglobin A1c 5.2 % Phosphorus Level 2.6 MG/DL Magnesium Level 2.1 MG/DL 1.9 MG/DL Total Creatine Kinase 41 U/L Troponin I LESS THAN 0.02 NG/ML Triglycerides Level 76 MG/DL Cholesterol Level 181 MG/DL LDL Cholesterol 111 MG/DL HDL Cholesterol 54.5 MG/DL Cholesterol/HDL Ratio 3.32 RATIO Thyroid Stimulating Hormone 1.720 uIU/ML 3rd Gen Human Chorionic Gonadotropin, 2 MIU/ML Quant Blood Type AB POSITIVE Antibody Screen NEGATIVE Blood Bank Comment Urine Color LIGHT-YELLOW Urine Turbidity CLEAR Urine pH 7.5 Urine Specific [place] 1.008 Urine Protein 300 mg/dL Urine Glucose (UA) 300 mg/dL Urine Ketones NEG mg/dL Urine Occult Blood SMALL Urine Nitrite NEG Urine Bilirubin NEG Urine Urobilinogen LESS THAN 2.0 MG/DL Urine Leukocyte Esterase NEG Urine RBC 13 /hpf Urine WBC 1 /hpf Microscopic Urinalysis Comment Urine Opiates Screen NEG Urine Barbiturates Screen NEG Urine Amphetamines Screen NEG Urine Benzodiazepines Screen NEG Urine Cocaine Screen NEG Urine Cannabinoids Screen NEG Blood Gas Puncture Site ART LINE Blood Gas Patient Temperature 98.6 Blood Gas HCO3 20 mmol/L Blood Gas Base Excess -5.2 mmol/L Blood Gas Oxygen Saturation 96 % Arterial Blood pH 7.32 Arterial Blood Partial 40 mmHg Pressure CO2 Arterial Blood Partial 136 mmHg Pressure O2 Arterial Blood Oxygen Content 13.9 Vol % Arterial Blood 2.1 % Carboxyhemoglobin Arterial Blood Methemoglobin 1.2 % Blood Gas Hemoglobin 10.2 G/DL Oxygen Delivery Device VENTILATOR Blood Gas Ventilator Setting IMV,12,450,PEP5,PS10 Blood Gas Inspired Oxygen 40 % Differential Total Cells 100 Counted Neutrophils % (Manual) 77 % Band Neutrophils % 13 % Lymphocytes % 7 % Monocytes % 3 % Neutrophils # (Manual) 15.3 TH/MM3 Platelet Estimate NORMAL Platelet Morphology Comment NORMAL Tear Drop Cells 1+ Potassium Level 4.1 MEQ/L Chloride Level 103 MEQ/L Carbon Dioxide Level 23.7 MEQ/L Anion Gap 8 MEQ/L Blood Urea Nitrogen 21 MG/DL Creatinine 1.17 MG/DL Estimat Glomerular Filtration 46 ML/MIN Rate Random Glucose 118 MG/DL Serum Osmolality 313 MOSM/KG Calcium Level 7.8 MG/DL Test 06/25/16 06/25/16 06/25/16 06/26/16 17:54 18:21 19:25 00:00 Nasal Screen MRSA (PCR) NEGATIVE Blood Gas Puncture Site ART LINE Blood Gas Patient Temperature 98.6 Blood Gas HCO3 20 mmol/L Blood Gas Base Excess -4.1 mmol/L Blood Gas Oxygen Saturation 96 % Arterial Blood pH 7.41 Arterial Blood Partial 32 mmHg Pressure CO2 Arterial Blood Partial 120 mmHg Pressure O2 Arterial Blood Oxygen Content 13.9 Vol % Arterial Blood 1.7 % Carboxyhemoglobin Arterial Blood Methemoglobin 1.0 % Blood Gas Hemoglobin 10.2 G/DL Oxygen Delivery Device VENTILATOR Blood Gas Ventilator Setting [facility]/24/450/+5 Blood Gas Inspired Oxygen 40 % Serum Osmolality 310 MOSM/KG 314 MOSM/KG Sodium Level 144 MEQ/L Test 06/26/16 06/26/16 05:14 05:15 Blood Gas Puncture Site ART LINE Blood Gas Patient Temperature 98.6 Blood Gas HCO3 20 mmol/L Blood Gas Base Excess -3.9 mmol/L Blood Gas Oxygen Saturation 97 % Arterial Blood pH 7.40 Arterial Blood Partial 34 mmHg Pressure CO2 Arterial Blood Partial 175 mmHg Pressure O2 Arterial Blood Oxygen Content 14.8 Vol % Arterial Blood 1.1 % Carboxyhemoglobin Arterial Blood Methemoglobin 1.1 % Blood Gas Hemoglobin 10.6 G/DL Oxygen Delivery Device VENTILATOR Blood Gas Ventilator Setting PRVC/AC Blood Gas Inspired Oxygen 40 % White Blood Count 13.6 TH/MM3 Red Blood Count 2.98 MIL/MM3 Hemoglobin 10.4 GM/DL Hematocrit 30.3 % Mean Corpuscular Volume 101.7 FL Mean Corpuscular Hemoglobin 34.8 PG Mean Corpuscular Hemoglobin 34.2 % Concent Red Cell Distribution Width 14.8 % Platelet Count 275 TH/MM3 Mean Platelet Volume 9.1 FL Neutrophils (%) (Auto) 81.4 % Lymphocytes (%) (Auto) 11.5 % Monocytes (%) (Auto) 6.8 % Eosinophils (%) (Auto) 0.1 % Basophils (%) (Auto) 0.2 % Neutrophils # (Auto) 11.0 TH/MM3 Lymphocytes # (Auto) 1.6 TH/MM3 Monocytes # (Auto) 0.9 TH/MM3 Eosinophils # (Auto) 0.0 TH/MM3 Basophils # (Auto) 0.0 TH/MM3 CBC Comment DIFF FINAL Differential Comment Sodium Level 147 MEQ/L Potassium Level 3.4 MEQ/L Chloride Level 114 MEQ/L Carbon Dioxide Level 21.2 MEQ/L Anion Gap 12 MEQ/L Blood Urea Nitrogen 17 MG/DL Creatinine 1.35 MG/DL Estimat Glomerular Filtration 39 ML/MIN Rate Random Glucose 143 MG/DL Serum Osmolality 313 MOSM/KG Lactic Acid Level 1.6 mmol/L Calcium Level 8.1 MG/DL Phosphorus Level 3.3 MG/DL Magnesium Level 1.9 MG/DL Total Bilirubin 1.1 MG/DL Aspartate Amino Transf 16 U/L (AST/SGOT) Alanine Aminotransferase 21 U/L (ALT/SGPT) Alkaline Phosphatase 91 U/L Total Protein 6.1 GM/DL Albumin 3.3 GM/DL 06/25/16 06/25/16 06/26/16 15:00 23:00 07:00 Intake Total 2682 ml 1843 ml Output Total 3000.0 ml 1210.0 ml Balance -318.0 ml 633.0 ml Intake Oral 0 ml IV Total 1919 ml 1815 ml Tube Feeding 63 ml 28 ml Other 700 ml Output Urine Total 1400 ml 700 ml Gastric Drainage Total 50 ml 340 ml Tube Feeding Residual Discard 0 ml 170.0 ml Drainage Total 0 ml 0 ml Estimated Blood Loss 150 ml Other 1400 ml # Bowel Movements 0 0 (Anthony Bryan) Medical Decision Making Impression and Plan A: 1. Large cerebellar hemorrhage with intraventricular extension and brainstem compression associated with hydrocephalus. This appears to be very characteristic of a hypertensive bleed. s/p suboccipital craniectomy for cerebellar hemorrhage evacuation and ventriculostomy drain placement. 2. Unregulated hypertension 3. Respiratory failure. P: Continue with [place] checks Continue with ICP monitoring and management Continue with critical care with vent management. (Anthony Bryan) Attending Statement The exam, history, and the medical decision-making described in the above note were completed with the assistance of the mid-level provider. I reviewed and agree with the findings presented. I attest that I had a [id number] encounter with the patient on the same day, and personally performed and documented my assessment and findings in the medical record. Follow-up CT scan of the head with improved cervical hemorrhage and mass effect and ventriculostomy in place with a moderate hydrocephalus. ICPs have been low but will lower ventriculostomy to 5 cm level. Prognosis appears to be grim at this point given no improvement postoperatively. No family available. (Keon Luo MD) Anthony Bryan Jun 26, 2016 09:09 Keon Luo MD Jun 26, 2016 14:55
--- NOTE | 2016-06-26 10:11 | HHI.CCPN ---
Subjective Remarks/Hospital Course This is a 70-year-old female. Date of admission 06/25/2016. Asked medical history includes hypertension, prior CVA 4 years ago. According to friends at bedside, patient smokes one pack per day and has been drinking alcohol recently. She does not take any home medications. She presents to [facility] ED for stroke alert. She was last seen in her normal state of health approximately 9 AM. Patient was sitting with her friends at her condo and started complaining of headache. Patient started having slow slurred speech and right-sided weakness subsequently. EMS was called. Patient was brought to the ED for evaluation. Patient started having decreasing in mentation and speech on the way to the ED. Patient unresponsive upon arrival to the ED. Patient received 20 mg etomidate and was emergently intubated by ED physician. CT head performed stat revealed blood in the lateral, third and fourth ventricles, subarachnoid hemorrhage in the posterior fossa and blood and the foramen magnum. Neurosurgery was consulted and plans to go to the OR. 100 g of mannitol provided stat 1. Cardene drip initiated to maintain a systolic blood pressure less than 150. Upon examination, patient has a day, pinpoint sluggish pupils and withdraws to pain left greater right upper and lower extremity Subjective 06/26: Afebrile. Status post occipital craniectomy with right mat hole placement. ICP is currently within normal limits. Unresponsive on sedation vacation. ICPs elevated went to prevent held. Currently with high tube feed residuals, however these have been resumed. Objective Vital Signs Date Time Temp Pulse Resp B/P Pulse Ox O2 Delivery O2 Flow Rate FiO2 06/26/16 08:00 78 06/26/16 08:00 96.6 20 140/50 100 06/26/16 08:00 40 06/25/16 17:19 Mechanical Ventilator 06/25/16 10:00 5.00 Intake and Output 06/25/16 06/25/16 06/26/16 08:00 16:00 00:00 Intake Total 700 ml 1982 ml Output Total 1550 ml 1620.0 ml Balance -850 ml 362.0 ml Result Diagram: 06/26/16 0515 06/26/16 0515 Imaging Last Impressions Head CT 06/26/16 0600 Signed Impressions: Service Date/Time: Sunday, June 26, 2016 05:50 - CONCLUSION: Interval placement of right ventriculostomy and suboccipital craniotomy. Cerebellar and intraventricular hemorrhages stable. Willem Coronado MD Chest X-Ray 06/26/16 0000 Signed Impressions: Service Date/Time: Sunday, June 26, 2016 05:39 - CONCLUSION: Lines and tubes stable. The lungs are clear. Willem Coronado MD Objective Remarks GENERAL: 70-year-old female, critically ill currently orotracheally intubated SKIN: Warm and dry. No rash HEAD: Status post suboccipital craniectomy with right mat hole EYES: Pupils equal and round around 2 mm bilaterally and sluggish. No scleral icterus. No injection or drainage. ENT: No nasal bleeding or discharge. Mucous membranes pink and moist. NECK: Trachea midline. No JVD. Right IJ clean dry and intact CARDIOVASCULAR: Regular rate and rhythm. S1, S2. Faint 1/6 systolic murmur RESPIRATORY:. Clear to auscultation. Breath sounds equal bilaterally. GASTROINTESTINAL: Abdomen soft, non-tender, nondistended. Hypoactive bowel sounds are appreciated MUSCULOSKELETAL: Extremities without significant peripheral edema. No obvious deformities. NEUROLOGICAL: Appears to have a right facial droop. Pupils are pinpoint and minimally reactive/sluggish bilateral. Positive gag. Currently not withdrawing to pain in upper or lower extremity. Upper toes. Urinary Catheter: Yes Assessment to: Continue Tovar insert reason: Prolonged Immobilization Vascular Central Line Catheter: Yes Assessment to: Continue Date of Insertion: Jun 25, 2016 Side: Right Location: Internal, Jugular A/P Assessment and Plan Neuro/Psych: Postop day 1 suboccipital craniectomy with sorbitol evacuation/right mat hole placement secondary to Acute intracranial hemorrhage - lateral, third and fourth ventricles Subarachnoid hemorrhage posterior fossa with blood and the foramen magnum EtOH Patient is currently on propofol drip at 15 mcg/kg per minute/fentanyl 50 g an hour for sedation/analgesia while intubated Goal of RASS -2 Daily sedation vacation when okay with neurosurgery CT head revealed blood in the lateral, third and fourth ventricle. Subarachnoid hemorrhage within the posterior fossa and blood in the foramen magnum. Received 100 g mannitol in ED. Neurosurgery/Dr. Luo to or now Mannitol 12.5 every 8/3% saline at 20 cc now. goal sodium 150-155 and serum osm ~ 310 Thiamine/multivitamin and folate daily for EtOH. CV: Hypertensive emergency History of hypertension Patient currently on Cardene drip to maintain systolic blood pressure less than 150. Currently at 3 mg an hour Check 2-D echocardiogram. As needed labetalol in attempt to wean off Cardene drip. Patient not on any home antihypertensives. Resp: Acute respiratory failure secondary to hemorrhagic CVA Tobaccoism ACV 20/450/5/40 Ventilator bundle Bronchodilator therapy as needed Tobacco cessation education was provided when appropriate Chest x-ray on admission revealed no acute cardio pulmonary findings GI: Initiate tube feeding with vital 1.5 goal 50 cc an hour. Protonix for GI prophylaxis while intubated Colace/as needed Senokot for bowel regimen Add Reglan 5 mg IV every 8 hours prokinetic agent : Tovar be placed for accurate I's and O's in critically ill patient Endo: Hyperglycemia Sliding-scale insulin with Accu-Cheks every 6 to maintain euglycemia. Moderate regimen. Follow-up on hemoglobin A1c Renal: Acute kidney injury creatinine 1.2 Patient will be hydrated with normal saline at 84 cc an hour. Monitor Urine output closely. Avoid nephrotoxic drugs Heme: Leukocytosis Macrocytosis Likely leukemoid type reaction. Monitor CBC in a.m. Coags normal Investigate macrocytosis with B12, folate and TSH and peripheral smear if indicated. ID: Monitor for infection UA reveals no etiology FEN: Hypokalemia Replace electrolytes per ICU electrolyte protocol. 40 mEq given 1. Recheck in a.m. MSK: PT/OT evaluate and treat Critical Care: The total critical care time was 35 minutes. Time to perform other separately billable procedures was not included in the critical care time. Kareem Zavala MD Jun 26, 2016 10:11 Monitor Urine output closely. Avoid nephrotoxic drugs Heme: Leukocytosis Macrocytosis Likely leukemoid type reaction. Monitor CBC in a.m. Coags normal Investigate macrocytosis with B12, folate and TSH and peripheral smear if indicated. ID: Monitor for infection UA reveals no etiology FEN: Hypokalemia Replace electrolytes per ICU electrolyte protocol. MSK: PT/OT evaluate and treat Critical Care: The total critical care time was 55 minutes. Time to perform other separately billable procedures was not included in the critical care time. Kareem Zavala MD Jun 26, 2016 10:11
[2016-06-26] MEDS ORDERED: POLYETHYLENE GLYCOL 17 GM PKG PO ONE (10:30)
[2016-06-26] MEDS: SENNOSIDES SYRUP 8.8 MG/5 ML CUP G-TUBE SCH (12:00)
[2016-06-26] MEDS ORDERED: LIDOCAINE HCL 1% 50 ML VIAL ONE (13:16)
--- NOTE | 2016-06-26 15:00 | EC ---
Study Study Date:06/26/2016 STUDY CONCLUSIONS SUMMARY - Procedure narrative: Transthoracic echocardiography. Image quality was fair. The study was technically limited due to poor acoustic window availability. Scanning was performed from the parasternal, apical, and subcostal acoustic windows. - Left ventricle: The cavity size was normal. Wall thickness was increased in a pattern of mild LVH. Systolic function was normal. The estimated ejection fraction was in the range of 55% to 60%. Probable pseudonormal left ventricular filling pattern, with concomitant abnormal relaxation and increased filling pressure (grade 2 diastolic dysfunction). If LV function is below 40, please consider prescribing an ACEI or ARB or document rationale for non-use. PROCEDURE DATA STUDY STATUS: Elective. Procedure: Transthoracic echocardiography. Image quality was fair. The study was technically limited due to poor acoustic window availability. Scanning was performed from the parasternal, apical, and subcostal acoustic windows. Study completion: The patient tolerated the procedure well. Transthoracic echocardiography. M-mode, complete 2D, complete spectral Doppler, and color Doppler. Patient status: Inpatient. CARDIAC ANATOMY LEFT VENTRICLE: The cavity size was normal. Wall thickness was increased in a pattern of mild LVH. Systolic function was normal. The estimated ejection fraction was in the range of 55% to 60%. Probable pseudonormal left ventricular filling pattern, with concomitant abnormal relaxation and increased filling pressure (grade 2 diastolic dysfunction). AORTIC VALVE: The valve appears to be grossly normal. Doppler: There was no stenosis. No significant regurgitation. MITRAL VALVE: The valve appears to be grossly normal. Doppler: There was no evidence for stenosis. Trace regurgitation. RIGHT VENTRICLE: The cavity size was normal. Systolic function was normal. PULMONIC VALVE: Poorly visualized. Doppler: There was no evidence for stenosis. No significant regurgitation. TRICUSPID VALVE: The valve appears to be grossly normal. Doppler: There was no evidence for stenosis. Trace regurgitation. PERICARDIUM: There was no pericardial effusion. BASIC MEASUREMENTS ADULT NORMAL Left ventricle LV internal dimension, ED, chordal level, *35.6 mm 43-52 PLAX LV internal dimension, ES, chordal level, 27.4 mm 23-38 PLAX Fractional shortening, chordal level, PLAX *23 % >29 LV posterior wall thickness, ED 12.8 mm IVS/LVPW ratio, ED 0.8 <1.3 Ventricular septum Septal thickness, ED 10.2 mm Aortic valve Leaflet separation 15 mm 15-26 Right ventricle RV internal dimension, ED, PLAX 24.3 mm 19-38 BASIC MEASUREMENTS ADULT NORMAL Aortic valve Leaflet separation 15 mm 15-26 Aorta Root diameter, ED 30 mm 20-37 Left atrium Anterior-posterior dimension, ES 24 mm 19-40 LA/aortic root ratio 0.8 LEGEND: Mean values are shown as u=mean value. Asterisk (*) chopra values outside specified normal range. Prepared and signed by Parth Melgar [id number]
[2016-06-26] MEDS: METOCLOPRAMIDE HCL 10 MG/2 ML VIAL IV PUSH SCH ×2 (15:15→21:24)
[2016-06-26] MEDS: 3% SALINE INJ 500 ML IV SCH (15:55)
[2016-06-26] MEDS: POLYETHYLENE GLYCOL 17 GM PKG PO SCH (21:31)
[2016-06-27] VITALS (19 sets, daily range): BP systolic 142–156; BP diastolic 44–48; PULSE 62–86; RESP 15–17; TEMP 97–98.2; O2SAT 40–100
[2016-06-27] MEDS: SODIUM CHLOR 0.9% 1000 ML INJ 1,000 ML IV SCH ×2 (00:45→12:06)
[2016-06-27] MEDS: SENNOSIDES SYRUP 8.8 MG/5 ML CUP G-TUBE SCH ×3 (01:05→23:32)
[2016-06-27] MEDS: MANNITOL 12.5 GM/50 ML VIAL IV SCH ×3 (04:00→19:46)
[2016-06-27] MEDS: CHLORHEXIDINE GLUCONATE 2 % 1 PACK (2 CLOTHS) TOP SCH (04:00)
[2016-06-27] MEDS: PROPOFOL 1000 MG/100 ML IV SCH ×2 (05:02→09:07)
[2016-06-27] MEDS: METOCLOPRAMIDE HCL 10 MG/2 ML VIAL IV PUSH SCH (05:03)
[2016-06-27] MEDS: INSULIN NovoLIN REGULAR SUPPLEMENTAL SCALE SQ SCH ×4 (06:00→17:04)
[2016-06-27] MEDS: SODIUM CHLORIDE 0.9% FLUSH 5 ML FLUSH IVF SCH ×2 (09:00→20:37)
[2016-06-27] MEDS: THIAMINE INJ 100 MG in SODIUM CHLORIDE 0.9% INJ 100 ML IV SCH (09:05)
[2016-06-27] MEDS: FOLIC ACID 1 MG TAB PO SCH (09:06)
[2016-06-27] MEDS: fentaNYL DRIP 250 ML IV SCH (09:06)
[2016-06-27] MEDS: MULTIVITAMIN TAB PO SCH (09:06)
[2016-06-27] MEDS: levETIRAcetam INJ 500 MG in SODIUM CHLORIDE 0.9% INJ 100 ML IV SCH ×2 (09:06→20:37)
[2016-06-27] MEDS: niCARdipine INJ 25 MG in SODIUM CHLOR 0.9% 250 ML INJ 250 ML IV SCH (09:06)
[2016-06-27] MEDS: DOCUSATE SODIUM 100 MG CAP PO SCH ×2 (09:06→20:37)
[2016-06-27] MEDS: ARTIFICIAL TEARS OPTH SOLN 15 ML BTL EACH EYE SCH ×3 (09:07→17:04)
[2016-06-27] MEDS: PANTOPRAZOLE SODIUM 40 MG VIAL IV SCH (09:07)
[2016-06-27] MEDS: POLYETHYLENE GLYCOL 17 GM PKG PO SCH (09:11)
--- NOTE | 2016-06-27 13:33 | HHI.CCPN ---
Subjective Remarks/Hospital Course This is a 70-year-old female. Date of admission 06/25/2016. Asked medical history includes hypertension, prior CVA 4 years ago. According to friends at bedside, patient smokes one pack per day and has been drinking alcohol recently. She does not take any home medications. She presents to [facility] ED for stroke alert. She was last seen in her normal state of health approximately 9 AM. Patient was sitting with her friends at her condo and started complaining of headache. Patient started having slow slurred speech and right-sided weakness subsequently. EMS was called. Patient was brought to the ED for evaluation. Patient started having decreasing in mentation and speech on the way to the ED. Patient unresponsive upon arrival to the ED. Patient received 20 mg etomidate and was emergently intubated by ED physician. CT head performed stat revealed blood in the lateral, third and fourth ventricles, subarachnoid hemorrhage in the posterior fossa and blood and the foramen magnum. Neurosurgery was consulted and plans to go to the OR. 100 g of mannitol provided stat 1. Cardene drip initiated to maintain a systolic blood pressure less than 150. Upon examination, patient has a day, pinpoint sluggish pupils and withdraws to pain left greater right upper and lower extremity 06/26: Afebrile. Status post occipital craniectomy with right mat hole placement. ICP is currently within normal limits. Unresponsive on sedation vacation. ICPs elevated went to prevent held. Currently with high tube feed residuals, however these have been resumed. Subjective 06/27: Tmax 99. Currently afebrile. Continues on Cardene drip. Not tolerating tube feeding. No bowel movement. Off all sedation since 01 17. Sluggish pupils bilaterally. Positive gag. Doesn't withdraw to pain in all 4 extremities. Objective Vital Signs Date Time Temp Pulse Resp B/P Pulse Ox O2 Delivery O2 Flow Rate FiO2 06/27/16 12:29 100 40 06/27/16 10:00 75 06/27/16 08:00 97.7 17 148/44 06/25/16 17:19 Mechanical Ventilator 06/25/16 10:00 5.00 Intake and Output 06/26/16 06/26/16 06/27/16 08:00 16:00 00:00 Intake Total 1843 ml 1575 ml 1248 ml Output Total 1040.0 ml 555 ml 387 ml Balance 803.0 ml 1020 ml 861 ml Result Diagram: 06/26/16 0515 06/27/16 0515 Imaging Last Impressions Head CT 06/26/16 0600 Signed Impressions: Service Date/Time: Sunday, June 26, 2016 05:50 - CONCLUSION: Interval placement of right ventriculostomy and suboccipital craniotomy. Cerebellar and intraventricular hemorrhages stable. Willem Coronado MD Chest X-Ray 06/26/16 0000 Signed Impressions: Service Date/Time: Sunday, June 26, 2016 05:39 - CONCLUSION: Lines and tubes stable. The lungs are clear. Willem Coronado MD Objective Remarks GENERAL: 70-year-old female, critically ill currently orotracheally intubated SKIN: Warm and dry. No rash HEAD: Status post suboccipital craniectomy with right mat hole EYES: Pupils equal and round around 2 mm bilaterally and sluggish. No scleral icterus. No injection or drainage. ENT: No nasal bleeding or discharge. Mucous membranes pink and moist. NECK: Trachea midline. No JVD. Right IJ clean dry and intact CARDIOVASCULAR: Regular rate and rhythm. S1, S2. Faint 1/6 systolic murmur RESPIRATORY:. Clear to auscultation. Breath sounds equal bilaterally. GASTROINTESTINAL: Abdomen soft, non-tender, nondistended. Hypoactive bowel sounds are appreciated MUSCULOSKELETAL: Extremities without significant peripheral edema. No obvious deformities. NEUROLOGICAL: Appears to have a right facial droop. Pupils are pinpoint and minimally reactive/sluggish bilateral. Positive gag. Currently not withdrawing to pain in upper or lower extremity. Upper toes. Urinary Catheter: Yes Assessment to: Continue Tovar insert reason: Prolonged Immobilization Vascular Central Line Catheter: Yes Assessment to: Continue Date of Insertion: Jun 25, 2016 Side: Right Location: Internal, Jugular A/P Assessment and Plan Neuro/Psych: Postop day 2 suboccipital craniectomy with sorbitol evacuation/right mat hole placement secondary to Acute intracranial hemorrhage - lateral, third and fourth ventricles Subarachnoid hemorrhage posterior fossa with blood and the foramen magnum EtOH Patient is currently off all sedation clean propofol and fentanyl Goal of RASS -2 Daily sedation vacation currently undergoing CT head revealed blood in the lateral, third and fourth ventricle. Subarachnoid hemorrhage within the posterior fossa and blood in the foramen magnum. Received 100 g mannitol in ED. Neurosurgery/Dr. Luo to or now Mannitol 12.5 every 8/3% saline at 10 cc now. goal sodium 150-155 and serum osm ~ 310 Thiamine/multivitamin and folate daily for EtOH. CV: Hypertensive emergency History of hypertension Grade 2 diastolic dysfunction Patient currently on Cardene drip to maintain systolic blood pressure less than 150. Currently at 5 mg an hour Switch to Cleviprex Check 2-D echocardiogram.- EF 55-60%. Trace MR/TR. Mild LVH. Grade 2 diastolic dysfunction. As needed labetalol in attempt to wean off Cardene drip. Scheduled 5 mg daily Norvasc Patient not on any home antihypertensives. Resp: Acute respiratory failure secondary to hemorrhagic CVA Tobaccoism PRVC 15/tidal volume around 450/1/5/40 Ventilator bundle Bronchodilator therapy as needed Tobacco cessation education was provided when appropriate Chest x-ray on admission revealed no acute cardio pulmonary findings. Recheck in a.m. 06/28 GI: Initiate tube feeding with vital 1.5 goal 50 cc an hour. High residuals. Start Reglan 5 every 8 for prokinetic agent Protonix for GI prophylaxis while intubated Colace/ Senokot twice a day for bowel regimen MiraLAX twice a day/lactulose daily/mineral oil 1 : Tovar be placed for accurate I's and O's in critically ill patient Endo: Hyperglycemia Sliding-scale insulin with Accu-Cheks every 6 to maintain euglycemia. Moderate regimen. Follow-up on hemoglobin A1c Renal: Acute kidney injury creatinine 1.2 Patient will be hydrated with normal saline at 84 cc an hour. Monitor Urine output closely. Avoid nephrotoxic drugs Heme: Leukocytosis Macrocytic anemia Likely leukemoid type reaction. Monitor CBC in a.m. Coags normal Investigate macrocytosis with B12, folate and TSH and peripheral smear if indicated. ID: Monitor for infection UA reveals no etiology FEN: Hypernatremia Replace electrolytes per ICU electrolyte protocol. MSK: PT/OT evaluate and treat Critical Care: The total critical care time was 35 minutes. Time to perform other separately billable procedures was not included in the critical care time. Consult in case management. Distal family members currently estranged. Only has 3 friends who visit her present time. Names are on board in room. Kareem Zavala MD Jun 27, 2016 13:33
[2016-06-27] MEDS ORDERED: MINERAL OIL LIQUID 30 ML CUP PO ONE (14:00)
[2016-06-27] MEDS ORDERED: amLODIPine BESYLATE 5 MG TAB PO ONE (14:00)
[2016-06-27] MEDS ORDERED: METOCLOPRAMIDE HCL 10 MG/2 ML VIAL IV SCH (14:00)
[2016-06-27] MEDS ORDERED: METOCLOPRAMIDE HCL 10 MG/2 ML VIAL IM SCH (14:00)
[2016-06-27] MEDS ORDERED: GLYCERIN ADULT 2 GM SUPP RECTAL ONE (14:00)
[2016-06-27] MEDS ORDERED: LACTULOSE SYRUP 20 GM/30 ML CUP PO ONE (14:00)
[2016-06-27] MEDS: CLEVIDIPINE INJ 50 ML IV SCH ×4 (14:14→23:32)
[2016-06-27 15:59] LABS: HEMATOCRIT 27.1 % (35.0-46.0); MEAN CORPUSCULAR HEMOGLOBIN 34.8 PG (27.0-34.0); MEAN CORPUSCULAR HGB CONC 33.1 % (32.0-36.0); PLATELET COUNT 203 TH/MM3 (150-450); RED BLOOD COUNT 2.58 MIL/MM3 (4.00-5.30); RED CELL DISTRIBUTION WIDTH 14.8 % (11.6-17.2); REVIEW FLAG FINAL; WHITE BLOOD COUNT 12.8 TH/MM3 (4.0-11.0)
[2016-06-27 18:09] LABS: BICARBONATE 18.2 MEQ/L (21.0-32.0); POTASSIUM 3.8 MEQ/L (3.5-5.1)
--- NOTE | 2016-06-27 20:34 | HHI.NSPN ---
History Chief Complaint: S/p suboccipital craniectomy for ICH evacuation. Exam Results Vital Signs Date Time Temp Pulse Resp B/P Pulse Ox O2 Delivery O2 Flow Rate FiO2 06/27/16 18:00 80 06/27/16 16:15 40 40 06/27/16 16:00 97.0 16 144/44 06/25/16 17:19 Mechanical Ventilator 06/25/16 10:00 5.00 Intake and Output 06/26/16 06/26/16 06/27/16 08:00 16:00 00:00 Intake Total 1843 ml 1575 ml 1248 ml Output Total 1040.0 ml 555 ml 387 ml Balance 803.0 ml 1020 ml 861 ml Physical Examination No eye opening No response to sternal rub, voice, command Pupils 2 mm nonreactive Negative gag and cough reflex No motor response deep pain all extremities Rick's response absent bilateral No ankle clonus Ventriculostomy and functioning well with moderate output-clear, yellow Lab, Micro, Other Results Laboratory Tests Test 06/27/16 06/27/16 06/27/16 06/27/16 00:30 05:15 12:00 15:32 Sodium Level 154 MEQ/L 154 MEQ/L 156 MEQ/L 155 MEQ/L Serum Osmolality 321 MOSM/KG 323 MOSM/KG 323 MOSM/KG White Blood Count 12.8 TH/MM3 Red Blood Count 2.58 MIL/MM3 Hemoglobin 9.0 GM/DL Hematocrit 27.1 % Mean Corpuscular Volume 105.0 FL Mean Corpuscular Hemoglobin 34.8 PG Mean Corpuscular Hemoglobin 33.1 % Concent Red Cell Distribution Width 14.8 % Platelet Count 203 TH/MM3 Mean Platelet Volume 9.8 FL Potassium Level 3.8 MEQ/L Chloride Level 128 MEQ/L Carbon Dioxide Level 18.2 MEQ/L Anion Gap 9 MEQ/L Blood Urea Nitrogen 20 MG/DL Creatinine 1.11 MG/DL Estimat Glomerular Filtration 49 ML/MIN Rate Random Glucose 139 MG/DL Calcium Level 8.0 MG/DL Test 06/27/16 18:00 Sodium Level 155 MEQ/L Serum Osmolality 324 MOSM/KG Medical Decision Making Impression and Plan Impression: 1. No neurologic improvement, now off sedation. Remains on ventilatory support. 2. 06/26/16 CT scan head with persistent moderate ventriculomegaly. Continue external ventricular drain at 5 cm water pressure. Plan: 1. Continue EVD. 2. Continue ventilator support 3. Discussed with nursing staff. No family available for decision making at this time. Spenser Cross MD Jun 27, 2016 20:34
[2016-06-27] MEDS: METOCLOPRAMIDE HCL 10 MG/2 ML VIAL IV SCH (20:37)
[2016-06-27] MEDS: POLYETHYLENE GLYCOL 17 GM PKG TUBE SCH (20:37)
[2016-06-28] VITALS (19 sets, daily range): BP systolic 136–172; BP diastolic 44–60; PULSE 70–97; RESP 14–19; TEMP 95.4–99.1; O2SAT 100
[2016-06-28] MEDS: SODIUM CHLOR 0.9% 1000 ML INJ 1,000 ML IV SCH ×2 (00:35→11:34)
[2016-06-28] MEDS: CLEVIDIPINE INJ 50 ML IV SCH ×10 (01:20→23:02)
[2016-06-28] MEDS: MANNITOL 12.5 GM/50 ML VIAL IV SCH ×3 (03:27→20:00)
[2016-06-28] MEDS: CHLORHEXIDINE GLUCONATE 2 % 1 PACK (2 CLOTHS) TOP SCH (04:00)
[2016-06-28 05:49] LABS: AUTOMATED NEUTROPHIL # 11.5 TH/MM3 (1.8-7.7); BASOPHIL # 0.1 TH/MM3 (0-0.2); BASOPHIL % 0.7 % (0.0-2.0); EOSINOPHIL # 0.1 TH/MM3 (0-0.4); EOSINOPHIL % 0.9 % (0.0-4.0); HEMATOCRIT 27.5 % (35.0-46.0); HEMO FLAGS DIFF FINAL; LYMPH % 11.2 % (9.0-44.0); LYMPHOCYTE # 1.5 TH/MM3 (1.0-4.8); MEAN CELL VOLUME 104.6 FL (80.0-100.0); MEAN CORPUSCULAR HEMOGLOBIN 34.7 PG (27.0-34.0); MEAN CORPUSCULAR HGB CONC 33.2 % (32.0-36.0); MONO % 3.1 % (0.0-8.0); NEUT % 84.1 % (16.0-70.0); PLATELET COUNT 230 TH/MM3 (150-450); RED BLOOD COUNT 2.63 MIL/MM3 (4.00-5.30); RED CELL DISTRIBUTION WIDTH 15.4 % (11.6-17.2); WHITE BLOOD COUNT 13.7 TH/MM3 (4.0-11.0)
[2016-06-28] MEDS: METOCLOPRAMIDE HCL 10 MG/2 ML VIAL IV SCH ×3 (06:00→21:32)
[2016-06-28] MEDS: INSULIN NovoLIN REGULAR SUPPLEMENTAL SCALE SQ SCH ×4 (06:00→18:00)
[2016-06-28 06:14] LABS: ANION GAP 14 MEQ/L (5-15); AST (GOT) 11 U/L (15-37); BICARBONATE 15.8 MEQ/L (21.0-32.0); BLOOD UREA NITROGEN 22 MG/DL (7-18); CHLORIDE 123 MEQ/L (98-107); GLOMERULAR FILTRATION RATE 50 ML/MIN (>89); MAGNESIUM 2.3 MG/DL (1.5-2.5); POTASSIUM 3.4 MEQ/L (3.5-5.1); SODIUM (NA) 153 MEQ/L (136-145)
[2016-06-28 06:19] LABS: ALKALINE PHOSPHATASE 88 U/L (45-117); ALT (GPT) 15 U/L (10-53); TOTAL BILIRUBIN ADULT 0.8 MG/DL (0.2-1.0)
--- NOTE | 2016-06-28 07:05 | RADRPT ---
EXAM DATE/TIME: 06/28/2016 05:29 [facility] COMPARISON: CHEST SINGLE AP, June 26, 2016, 5:39. INDICATIONS : Evaluate after respiratory failure MEDICAL HISTORY : None. SURGICAL HISTORY : None. ENCOUNTER: Subsequent ACUITY: 4 - 6 days PAIN SCORE: Non-responsive. LOCATION: Bilateral chest FINDINGS: Endotracheal tube well above the ni. Gastric tube traverses the [id number]. Right internal j ugular catheter tip projects over the mid superior vena cava. The lungs are symmetrically aerated. No infiltrates seen. The heart is normal size. CONCLUSION: The lungs are clear. Willem Coronado MD on June 28, 2016 at 7:03 Board Certified Radiologist. This report was verified electronically.
[2016-06-28] MEDS: THIAMINE INJ 100 MG in SODIUM CHLORIDE 0.9% INJ 100 ML IV SCH (08:27)
[2016-06-28] MEDS: levETIRAcetam INJ 500 MG in SODIUM CHLORIDE 0.9% INJ 100 ML IV SCH ×2 (08:28→20:31)
[2016-06-28] MEDS: MULTIVITAMIN TAB PO SCH (08:28)
[2016-06-28] MEDS: DOCUSATE SODIUM 100 MG CAP PO SCH ×2 (08:28→20:32)
[2016-06-28] MEDS: POLYETHYLENE GLYCOL 17 GM PKG TUBE SCH ×2 (08:28→20:32)
[2016-06-28] MEDS: FOLIC ACID 1 MG TAB PO SCH (08:28)
[2016-06-28] MEDS: PANTOPRAZOLE SODIUM 40 MG VIAL IV SCH (08:28)
[2016-06-28] MEDS: ARTIFICIAL TEARS OPTH SOLN 15 ML BTL EACH EYE SCH ×3 (08:29→17:55)
[2016-06-28] MEDS: SODIUM CHLORIDE 0.9% FLUSH 5 ML FLUSH IVF SCH ×2 (08:29→20:32)
[2016-06-28] MEDS ORDERED: amLODIPine BESYLATE 5 MG TAB PO SCH (09:00)
[2016-06-28] MEDS ORDERED: LACTULOSE SYRUP 20 GM/30 ML CUP PO SCH (09:00)
[2016-06-28] MEDS: SENNOSIDES SYRUP 8.8 MG/5 ML CUP G-TUBE SCH (11:34)
[2016-06-28] MEDS ORDERED: MINERAL OIL LIQUID 30 ML CUP PO ONE (13:15)
[2016-06-28] MEDS ORDERED: GLYCERIN ADULT 2 GM SUPP RECTAL ONE (13:15)
--- NOTE | 2016-06-28 13:25 | HHI.CCPN ---
Subjective Remarks/Hospital Course This is a 70-year-old female. Date of admission 06/25/2016. Asked medical history includes hypertension, prior CVA 4 years ago. According to friends at bedside, patient smokes one pack per day and has been drinking alcohol recently. She does not take any home medications. She presents to [facility] ED for stroke alert. She was last seen in her normal state of health approximately 9 AM. Patient was sitting with her friends at her condo and started complaining of headache. Patient started having slow slurred speech and right-sided weakness subsequently. EMS was called. Patient was brought to the ED for evaluation. Patient started having decreasing in mentation and speech on the way to the ED. Patient unresponsive upon arrival to the ED. Patient received 20 mg etomidate and was emergently intubated by ED physician. CT head performed stat revealed blood in the lateral, third and fourth ventricles, subarachnoid hemorrhage in the posterior fossa and blood and the foramen magnum. Neurosurgery was consulted and plans to go to the OR. 100 g of mannitol provided stat 1. Cardene drip initiated to maintain a systolic blood pressure less than 150. Upon examination, patient has a day, pinpoint sluggish pupils and withdraws to pain left greater right upper and lower extremity 06/26: Afebrile. Status post occipital craniectomy with right mat hole placement. ICP is currently within normal limits. Unresponsive on sedation vacation. ICPs elevated went to prevent held. Currently with high tube feed residuals, however these have been resumed. 06/27: Tmax 99. Currently afebrile. Continues on Cardene drip. Not tolerating tube feeding. No bowel movement. Off all sedation since 01 17. Sluggish pupils bilaterally. Positive gag. Doesn't withdraw to pain in all 4 extremities. Subjective 06/28: Afebrile. No bowel movement. High tube feeding residuals. Withdraws to bilateral lower extremities only. Objective Vital Signs Date Time Temp Pulse Resp B/P Pulse Ox O2 Delivery O2 Flow Rate FiO2 06/28/16 12:52 100 40 06/28/16 10:00 91 06/28/16 08:00 97.7 19 166/60 06/25/16 17:19 Mechanical Ventilator 06/25/16 10:00 5.00 Intake and Output 06/27/16 06/27/16 06/28/16 08:00 16:00 00:00 Intake Total 1357 ml 1206 ml 986 ml Output Total 364 ml 450 ml 507 ml Balance 993 ml 756 ml 479 ml Result Diagram: 06/28/16 0515 06/28/16 1200 Imaging Last Impressions Chest X-Ray 06/28/16 0600 Signed Impressions: Service Date/Time: Tuesday, June 28, 2016 05:29 - CONCLUSION: The lungs are clear. Willem Coronado MD Head CT 06/26/16 06 Signed Impressions: Service Date/Time: Sunday, June 26, 2016 05:50 - CONCLUSION: Interval placement of right ventriculostomy and suboccipital craniotomy. Cerebellar and intraventricular hemorrhages stable. Willem Coronaod MD Objective Remarks GENERAL: 70-year-old female, critically ill currently orotracheally intubated SKIN: Warm and dry. No rash HEAD: Status post suboccipital craniectomy with right mat hole EYES: Pupils equal and round around 2 mm bilaterally and sluggish. No scleral icterus. No injection or drainage. ENT: No nasal bleeding or discharge. Mucous membranes pink and moist. NECK: Trachea midline. No JVD. Right IJ clean dry and intact CARDIOVASCULAR: Regular rate and rhythm. S1, S2. Faint 1/6 systolic murmur RESPIRATORY:. Clear to auscultation. Breath sounds equal bilaterally. GASTROINTESTINAL: Abdomen soft, non-tender, nondistended. Hypoactive bowel sounds are appreciated MUSCULOSKELETAL: Extremities without significant peripheral edema. No obvious deformities. NEUROLOGICAL: Appears to have a right facial droop. Pupils are pinpoint and minimally reactive/sluggish bilateral. Positive gag. Currently not withdrawing to pain in upper extremity. Withdraws to pain in bilateral lower extremities. Upper toes. Urinary Catheter: Yes Assessment to: Continue Tovar insert reason: Prolonged Immobilization Vascular Central Line Catheter: Yes Assessment to: Continue Date of Insertion: Jun 25, 2016 Line: Central Venous Catheter Side: Right Location: Internal, Jugular A/P Assessment and Plan Neuro/Psych: Postop day 3 suboccipital craniectomy with sorbitol evacuation/right mat hole placement secondary to Acute intracranial hemorrhage - lateral, third and fourth ventricles Subarachnoid hemorrhage posterior fossa with blood and the foramen magnum EtOH Patient is currently on propofol and fentanyl drips for sedation/analgesia while intubated Goal of RASS -2 Daily sedation vacation per neurosurgery CT head on admission revealed blood in the lateral, third and fourth ventricle. Subarachnoid hemorrhage within the posterior fossa and blood in the foramen magnum. Received 100 g mannitol in ED. Neurosurgery/Dr. Luo to or now Mannitol 12.5 every 8/3% saline at 10 cc both of now. goal sodium 150-155 and serum osm ~ 310 Thiamine/multivitamin and folate daily for EtOH. CV: Hypertensive emergency History of hypertension Grade 2 diastolic dysfunction Patient currently on Cleviprex drip at 40 mg an hour to maintain systolic blood pressure less than 150. Titrate Check 2-D echocardiogram.- EF 55-60%. Trace MR/TR. Mild LVH. Grade 2 diastolic dysfunction. As needed labetalol in attempt to wean off Cardene drip. Scheduled 10 mg daily Norvasc, hydralazine 25 every 8, Isordil 10 every 8 and clonidine 0.1 3 times a day in attempt to wean Patient not on any home antihypertensives. Resp: Acute respiratory failure secondary to hemorrhagic CVA Tobaccoism PRVC 15/tidal volume around 450/1/5/40 Ventilator bundle Bronchodilator therapy as needed Tobacco cessation education was provided when appropriate Chest x-ray 06/28 reveals no acute cardio primary findings GI: Initiate tube feeding with vital 1.5 goal 50 cc an hour. High residuals. Start Reglan 5 every 8 for prokinetic agent Protonix for GI prophylaxis while intubated Colace/ Senokot twice a day for bowel regimen MiraLAX twice a day/lactulose 4 times a day/mineral oil 1 Check KUB : Tovar be placed for accurate I's and O's in critically ill patient Endo: Hyperglycemia Sliding-scale insulin with Accu-Cheks every 6 to maintain euglycemia. Moderate regimen. Follow-up on hemoglobin A1c Renal: Acute kidney injury creatinine 1.2 Patient will be hydrated with normal saline at 84 cc an hour. Monitor Urine output closely. Avoid nephrotoxic drugs Heme: Leukocytosis Macrocytic anemia Likely leukemoid type reaction. Monitor CBC in a.m. Coags normal Investigate macrocytosis with B12, folate and TSH and peripheral smear if indicated. ID: Monitor for infection UA reveals no etiology FEN: Hypernatremia Hypopotassemia Replace electrolytes per ICU electrolyte protocol. 40 mEq potassium chloride. Recheck today MSK: PT/OT evaluate and treat Critical Care: The total critical care time was 35 minutes. Time to perform other separately billable procedures was not included in the critical care time. Kareem Zavala MD Jun 28, 2016 13:24
[2016-06-28] MEDS ORDERED: hydrALAZINE HCL 25 MG TAB PO SCH (14:00)
--- NOTE | 2016-06-28 14:24 | RADRPT ---
EXAM DATE/TIME: 06/28/2016 13:53 [facility] COMPARISON: No previous studies available for comparison. INDICATIONS : Constipation. MEDICAL HISTORY : None. SURGICAL HISTORY : None. ENCOUNTER: Subsequent ACUITY: 4 - 6 days PAIN SCORE: 0/10 LOCATION: Bilateral abdomen. FINDINGS: A moderate amount of air is seen in the colon. Nasogastric tube is across the GE junction. Rectal t ube is evident. There is no free air or obstruction. CONCLUSION: 1. Minimal gaseous distention of predominantly colon. 2. There is no evidence for obstruction. Walter Heard MD FACR on June 28, 2016 at 14:16 Board Certified Radiologist. This report was verified electronically.
[2016-06-28] MEDS: ISOSORBIDE DINITRATE 10 MG TAB PO SCH ×2 (14:55→21:32)
[2016-06-28] MEDS: cloNIDine HCL 0.1 MG TAB PO SCH ×2 (14:55→21:32)
--- NOTE | 2016-06-28 17:50 | HHI.NSPN ---
History Chief Complaint: S/p suboccipital craniectomy for ICH evacuation. Exam Results Vital Signs Date Time Temp Pulse Resp B/P Pulse Ox O2 Delivery O2 Flow Rate FiO2 06/28/16 17:19 100 40 06/28/16 16:00 73 06/28/16 12:00 97.2 18 142/52 06/25/16 17:19 Mechanical Ventilator 06/25/16 10:00 5.00 Intake and Output 06/27/16 06/27/16 06/28/16 08:00 16:00 00:00 Intake Total 1357 ml 1206 ml 986 ml Output Total 364 ml 450 ml 507 ml Balance 993 ml 756 ml 479 ml Physical Examination No eye opening No response to sternal rub, voice, command Pupils 3 mm nonreactive Negative gag and cough reflex No motor response deep pain all extremities Rick's response absent bilateral No ankle clonus Ventriculostomy and functioning well with moderate output-clear, yellow Lab, Micro, Other Results Laboratory Tests Test 06/27/16 06/28/16 06/28/16 06/28/16 18:00 00:20 05:15 12:00 Sodium Level 155 MEQ/L 155 MEQ/L 153 MEQ/L 153 MEQ/L Serum Osmolality 324 MOSM/KG 323 MOSM/KG 321 MOSM/KG 323 MOSM/KG White Blood Count 13.7 TH/MM3 Red Blood Count 2.63 MIL/MM3 Hemoglobin 9.1 GM/DL Hematocrit 27.5 % Mean Corpuscular Volume 104.6 FL Mean Corpuscular Hemoglobin 34.7 PG Mean Corpuscular Hemoglobin 33.2 % Concent Red Cell Distribution Width 15.4 % Platelet Count 230 TH/MM3 Mean Platelet Volume 9.7 FL Neutrophils (%) (Auto) 84.1 % Lymphocytes (%) (Auto) 11.2 % Monocytes (%) (Auto) 3.1 % Eosinophils (%) (Auto) 0.9 % Basophils (%) (Auto) 0.7 % Neutrophils # (Auto) 11.5 TH/MM3 Lymphocytes # (Auto) 1.5 TH/MM3 Monocytes # (Auto) 0.4 TH/MM3 Eosinophils # (Auto) 0.1 TH/MM3 Basophils # (Auto) 0.1 TH/MM3 CBC Comment DIFF FINAL Differential Comment Potassium Level 3.4 MEQ/L 3.7 MEQ/L Chloride Level 123 MEQ/L Carbon Dioxide Level 15.8 MEQ/L Anion Gap 14 MEQ/L Blood Urea Nitrogen 22 MG/DL Creatinine 1.09 MG/DL Estimat Glomerular Filtration 50 ML/MIN Rate Random Glucose 129 MG/DL Calcium Level 8.1 MG/DL Phosphorus Level 3.2 MG/DL Magnesium Level 2.3 MG/DL Total Bilirubin 0.8 MG/DL Aspartate Amino Transf 11 U/L (AST/SGOT) Alanine Aminotransferase 15 U/L (ALT/SGPT) Alkaline Phosphatase 88 U/L Total Protein 6.1 GM/DL Albumin 2.8 GM/DL Medical Decision Making Impression and Plan Impression: 1. No neurologic improvement, now off sedation. Remains on ventilatory support. 2. 06/26/16 CT scan head with persistent moderate ventriculomegaly. Continue external ventricular drain at 5 cm water pressure. Plan: 1. Continue EVD. 2. Continue ventilator support 3. Discussed with nursing staff. 4. Nutrition tube feedings held today due to increased residual. 5. Increased serum osmolality with increased sodium. Monitor electrolytes. Mannitol held Spenser Cross MD Jun 28, 2016 17:50
[2016-06-28] MEDS: LACTULOSE SYRUP 20 GM/30 ML CUP PO SCH (17:55)
[2016-06-28] MEDS ORDERED: SODIUM CHLOR 0.9% 1000 ML INJ 1,000 ML IV ONE (18:30)
[2016-06-28] MEDS ORDERED: ALBUMIN HUMAN 25% 25 GM/100 ML BAGP IV ONE (18:30)
[2016-06-28] MEDS ORDERED: METHYLNALTREXONE BROMIDE 12 MG/0.6 ML VIAL SQ ONE (18:30)
[2016-06-28] MEDS ORDERED: POTASSIUM CHLORIDE INJ 30 MEQ in SODIUM CHLORIDE 0.9% INJ 100 ML IV-CENTRAL ONE (20:00)
[2016-06-28] MEDS: hydrALAZINE HCL 25 MG TAB PO SCH (21:32)
[2016-06-29] VITALS (14 sets, daily range): BP systolic 141–164; BP diastolic 46–50; PULSE 68–84; RESP 14–17; TEMP 97.6–99.7; O2SAT 100
[2016-06-29] MEDS: LACTULOSE SYRUP 20 GM/30 ML CUP PO SCH ×3 (00:21→12:00)
[2016-06-29] MEDS: SODIUM CHLOR 0.9% 1000 ML INJ 1,000 ML IV SCH ×3 (00:41→13:06)
[2016-06-29] MEDS: CLEVIDIPINE INJ 50 ML IV SCH ×3 (03:27→15:46)
[2016-06-29] MEDS: MANNITOL 12.5 GM/50 ML VIAL IV SCH (03:27)
[2016-06-29] MEDS: CHLORHEXIDINE GLUCONATE 2 % 1 PACK (2 CLOTHS) TOP SCH (03:27)
[2016-06-29 05:44] LABS: AUTOMATED NEUTROPHIL # 7.2 TH/MM3 (1.8-7.7); BASOPHIL # 0.1 TH/MM3 (0-0.2); BASOPHIL % 0.8 % (0.0-2.0); EOSINOPHIL # 0.2 TH/MM3 (0-0.4); EOSINOPHIL % 1.7 % (0.0-4.0); HEMATOCRIT 22.1 % (35.0-46.0); HEMO FLAGS DIFF FINAL; LYMPH % 12.9 % (9.0-44.0); LYMPHOCYTE # 1.2 TH/MM3 (1.0-4.8); MEAN CELL VOLUME 104.1 FL (80.0-100.0); MEAN CORPUSCULAR HEMOGLOBIN 35.4 PG (27.0-34.0); MONO % 4.5 % (0.0-8.0); NEUT % 80.1 % (16.0-70.0); PLATELET COUNT 180 TH/MM3 (150-450); RED BLOOD COUNT 2.12 MIL/MM3 (4.00-5.30)
[2016-06-29] MEDS: hydrALAZINE HCL 25 MG TAB PO SCH ×2 (05:50→14:10)
[2016-06-29] MEDS: INSULIN NovoLIN REGULAR SUPPLEMENTAL SCALE SQ SCH ×3 (05:50→12:00)
[2016-06-29] MEDS: ISOSORBIDE DINITRATE 10 MG TAB PO SCH ×2 (05:50→14:10)
[2016-06-29] MEDS: cloNIDine HCL 0.1 MG TAB PO SCH ×2 (05:50→14:10)
[2016-06-29] MEDS: METOCLOPRAMIDE HCL 10 MG/2 ML VIAL IV SCH ×2 (05:50→14:11)
[2016-06-29 06:31] LABS: ALKALINE PHOSPHATASE 193 U/L (45-117); ALT (GPT) 44 U/L (10-53); ANION GAP 9 MEQ/L (5-15); AST (GOT) 44 U/L (15-37); BICARBONATE 16.6 MEQ/L (21.0-32.0); BLOOD UREA NITROGEN 27 MG/DL (7-18); CHLORIDE 127 MEQ/L (98-107); GLOMERULAR FILTRATION RATE 50 ML/MIN (>89); MAGNESIUM 2.3 MG/DL (1.5-2.5); POTASSIUM 3.9 MEQ/L (3.5-5.1); SODIUM (NA) 153 MEQ/L (136-145); TOTAL BILIRUBIN ADULT 0.9 MG/DL (0.2-1.0)
[2016-06-29] MEDS: DOCUSATE SODIUM 100 MG CAP PO SCH (09:00)
[2016-06-29] MEDS: POLYETHYLENE GLYCOL 17 GM PKG TUBE SCH (09:00)
[2016-06-29] MEDS: ARTIFICIAL TEARS OPTH SOLN 15 ML BTL EACH EYE SCH ×2 (09:05→13:07)
[2016-06-29] MEDS: PANTOPRAZOLE SODIUM 40 MG VIAL IV SCH (09:06)
[2016-06-29] MEDS: THIAMINE INJ 100 MG in SODIUM CHLORIDE 0.9% INJ 100 ML IV SCH (09:06)
[2016-06-29] MEDS: FOLIC ACID 1 MG TAB PO SCH (09:07)
[2016-06-29] MEDS: SODIUM CHLORIDE 0.9% FLUSH 5 ML FLUSH IVF SCH (09:07)
[2016-06-29] MEDS: MULTIVITAMIN TAB PO SCH (09:08)
[2016-06-29] MEDS: SENNOSIDES SYRUP 8.8 MG/5 ML CUP G-TUBE SCH ×2 (12:00)
--- NOTE | 2016-06-29 14:20 | RADRPT ---
EXAM DATE/TIME: 06/29/2016 13:08 [facility] COMPARISON: ABDOMEN KUB ONLY, June 28, 2016, 13:53. INDICATIONS : Ileus MEDICAL HISTORY : None. SURGICAL HISTORY : None. ENCOUNTER: Initial ACUITY: 4 - 6 days PAIN SCORE: Non-responsive. LOCATION: Bilateral abdomen FINDINGS: Multiple mildly distended air-filled loops of small bowel have developed since prior study. These are predominantly within the right abdomen. Gas is still evidence of a colon which is not distended. Nasogastric tube is in good position. CONCLUSION: New air-filled loops of small bowel characteristic of a developing ileus. No evidence of pathologic distention, free air or mass effect. Micha Pool MD on June 29, 2016 at 14:15 Board Certified Radiologist. This report was verified electronically.
--- NOTE | 2016-06-29 16:23 | HHI.CCPN ---
Subjective Remarks/Hospital Course This is a 70-year-old female. Date of admission 06/25/2016. Asked medical history includes hypertension, prior CVA 4 years ago. According to friends at bedside, patient smokes one pack per day and has been drinking alcohol recently. She does not take any home medications. She presents to [facility] ED for stroke alert. She was last seen in her normal state of health approximately 9 AM. Patient was sitting with her friends at her condo and started complaining of headache. Patient started having slow slurred speech and right-sided weakness subsequently. EMS was called. Patient was brought to the ED for evaluation. Patient started having decreasing in mentation and speech on the way to the ED. Patient unresponsive upon arrival to the ED. Patient received 20 mg etomidate and was emergently intubated by ED physician. CT head performed stat revealed blood in the lateral, third and fourth ventricles, subarachnoid hemorrhage in the posterior fossa and blood and the foramen magnum. Neurosurgery was consulted and plans to go to the OR. 100 g of mannitol provided stat 1. Cardene drip initiated to maintain a systolic blood pressure less than 150. Upon examination, patient has a day, pinpoint sluggish pupils and withdraws to pain left greater right upper and lower extremity 06/26: Afebrile. Status post occipital craniectomy with right mat hole placement. ICP is currently within normal limits. Unresponsive on sedation vacation. ICPs elevated went to prevent held. Currently with high tube feed residuals, however these have been resumed. 06/27: Tmax 99. Currently afebrile. Continues on Cardene drip. Not tolerating tube feeding. No bowel movement. Off all sedation since 01 17. Sluggish pupils bilaterally. Positive gag. Doesn't withdraw to pain in all 4 extremities. 06/28: Afebrile. No bowel movement. High tube feeding residuals. Withdraws to bilateral lower extremities only. Subjective 06/29: Tmax 99.7. Currently 98.1. One small bowel movement. Tube feeds currently at 20 cc an hour. Withdraws/upgoing toes the bilateral lower extremities only. Objective Vital Signs Date Time Temp Pulse Resp B/P Pulse Ox O2 Delivery O2 Flow Rate FiO2 06/29/16 15:52 100 35 06/29/16 14:00 76 06/29/16 12:00 98.1 16 164/50 06/25/16 17:19 Mechanical Ventilator 06/25/16 10:00 5.00 Intake and Output 06/28/16 06/28/16 06/29/16 08:00 16:00 00:00 Intake Total 987 ml 1297 ml 2065 ml Output Total 639 ml 566 ml 265 ml Balance 348 ml 731 ml 1800 ml Result Diagram: 06/29/16 0520 06/29/16 0520 Imaging Last Impressions Abdomen X-Ray 06/29/16 0000 Signed Impressions: Service Date/Time: Wednesday, June 29, 2016 13:08 - CONCLUSION: New air- filled loops of small bowel characteristic of a developing ileus. No evidence of pathologic distention, free air or mass effect. Micha Pool MD Chest X-Ray 06/28/16 0600 Signed Impressions: Service Date/Time: Tuesday, June 28, 2016 05:29 - CONCLUSION: The lungs are clear. Willem Coronado MD Head CT 06/26/16 0600 Signed Impressions: Service Date/Time: Sunday, June 26, 2016 05:50 - CONCLUSION: Interval placement of right ventriculostomy and suboccipital craniotomy. Cerebellar and intraventricular hemorrhages stable. Willem Coronado MD Objective Remarks GENERAL: 70-year-old female, critically ill currently orotracheally intubated SKIN: Warm and dry. No rash HEAD: Status post suboccipital craniectomy with right mat hole EYES: Pupils equal and round around 2 mm bilaterally and sluggish. No scleral icterus. No injection or drainage. ENT: No nasal bleeding or discharge. Mucous membranes pink and moist. NECK: Trachea midline. No JVD. Right IJ clean dry and intact CARDIOVASCULAR: Regular rate and rhythm. S1, S2. Faint 1/6 systolic murmur RESPIRATORY:. Clear to auscultation. Breath sounds equal bilaterally. GASTROINTESTINAL: Abdomen soft, non-tender, nondistended. Hypoactive bowel sounds are appreciated MUSCULOSKELETAL: Extremities without significant peripheral edema. No obvious deformities. NEUROLOGICAL: Appears to have a right facial droop. Pupils are pinpoint and minimally reactive/sluggish bilateral. Positive gag. Currently not withdrawing to pain in upper extremity. Withdraws to pain in bilateral lower extremities. Upper toes. Urinary Catheter: Yes Assessment to: Continue Tovar insert reason: Prolonged Immobilization Vascular Central Line Catheter: Yes Assessment to: Continue Date of Insertion: Jun 25, 2016 Line: Central Venous Catheter Side: Right Location: Internal, Jugular A/P Assessment and Plan Neuro/Psych: Postop day 4 suboccipital craniectomy with subdural evacuation/right mat hole placement secondary to Acute intracranial hemorrhage - lateral, third and fourth ventricles Subarachnoid hemorrhage posterior fossa with blood and the foramen magnum EtOH Patient is currently on propofol and fentanyl drips for sedation/analgesia while intubated Goal of RASS -2 Daily sedation vacation per neurosurgery CT head on admission revealed blood in the lateral, third and fourth ventricle. Subarachnoid hemorrhage within the posterior fossa and blood in the foramen magnum. Neurosurgery/Dr. Luo following Discontinued mannitol and 3% saline goal sodium 150-155 and serum osm ~ 310 Thiamine/multivitamin and folate daily for EtOH. CV: Hypertensive emergency History of hypertension Grade 2 diastolic dysfunction Patient currently on Cleviprex drip at 4 mg an hour to maintain systolic blood pressure less than 150. Titrate Check 2-D echocardiogram.- EF 55-60%. Trace MR/TR. Mild LVH. Grade 2 diastolic dysfunction. As needed labetalol in attempt to wean off Cardene drip. Scheduled 10 mg daily Norvasc, hydralazine 25 mill grams every 8, Isordil 20 milligrams every 8 and clonidine 0.1 milligrams 3 times a day in attempt to wean Patient not on any home antihypertensives. Resp: Acute respiratory failure secondary to hemorrhagic CVA Tobaccoism PRVC 15/tidal volume around 450/1/5/40 Ventilator bundle Bronchodilator therapy as needed Tobacco cessation education was provided when appropriate Chest x-ray 06/28 reveals no acute cardio primary findings GI: Mild ileus Initiate tube feeding with vital 1.5 goal 50 cc an hour. High residuals. Started Reglan 10 every 8 for prokinetic agent Protonix for GI prophylaxis while intubated Colace/ Senokot twice a day for bowel regimen MiraLAX twice a day/lactulose 4 times a day/mineral oil 1 initiated Check KUB on one slice and revealed mild/developing ileus. Air in colon. 100 cc stool. : Tovar be placed for accurate I's and O's in critically ill patient Endo: Hyperglycemia Sliding-scale insulin with Accu-Cheks every 6 to maintain euglycemia. Moderate regimen. Follow-up on hemoglobin A1c Renal: Acute kidney injury creatinine 1.2 Patient will be hydrated with normal saline at 84 cc an hour. Monitor Urine output closely. Avoid nephrotoxic drugs Heme: Leukocytosis Macrocytic anemia Likely leukemoid type reaction. Monitor CBC in a.m. Coags normal Investigate macrocytosis with B12, folate and TSH and peripheral smear if indicated. ID: Monitor for infection UA reveals no etiology FEN: Hypernatremia Replace electrolytes per ICU electrolyte protocol. MSK: PT/OT evaluate and treat Critical Care: The total critical care time was 35 minutes. Time to perform other separately billable procedures was not included in the critical care time. Discussed with Ivon Carvajal, healthcare proxy. Request withdrawal of care. Signed with Dr. Luo neurosurgery who concurs. Plan for extubation today. Kareem Zavala MD Jun 29, 2016 16:23
--- NOTE | 2016-06-29 16:36 | HHI.NSPN ---
(Anthony Bryan) History Chief Complaint: S/p suboccipital craniectomy for ICH evacuation. (Anthony Bryan) Interval History A 70-year-old female who was brought to [facility] emergency room after she had an acute onset of headache with subsequent weakness and slurred speech and progressed to obtundation and was unresponsive in the emergency room requiring intubation and ventilator support. She was also very hypertensive on presentation with a blood pressure of 251/116. Following stabilization of her cardiopulmonary status, a CT scan of the head was obtained which reveals a large cerebellar hemorrhage with extension into the ventricles and a moderate hydrocephalus. There also appears to be hypodensity on the brainstem, a possible evolving infarction. Neurosurgery consultation was requested for assistance in the management of the intracranial hemorrhage. 06/26/15: Pt sedated on Diprivan and Fentanyl drips. Not opening eyes. Pupils 2mm bilaterally NR bilaterally. No response to pain in upper chest. Ventriculostomy in place ICP 1. 06/29/15: Pt sedated on Fentanyl which is being weaned. Off Diprivan. Not opening eyes. Pupils 2mm bilaterally NR bilaterally. No response to pain in upper chest. Mild cough to ET suctioning. Ventriculostomy in place with bloody CSF drainage. ICP 4-5 range. (Anthony Bryan) System Review Comments Not able to obtain given pts clinical condition. (Anthony Bryan) Exam Results Vital Signs Date Time Temp Pulse Resp B/P Pulse Ox O2 Delivery O2 Flow Rate FiO2 06/29/16 15:52 100 35 06/29/16 14:00 76 06/29/16 12:00 98.1 16 164/50 06/25/16 17:19 Mechanical Ventilator 06/25/16 10:00 5.00 Intake and Output 06/28/16 06/28/16 06/29/16 08:00 16:00 00:00 Intake Total 987 ml 1297 ml 2065 ml Output Total 639 ml 566 ml 265 ml Balance 348 ml 731 ml 1800 ml (Anthony Bryan) Physical Examination Resp: Intubated. PRVC A/C rate 14. Heart: NSR no murmurs Abd: Soft positive bs Skin: No cyanosis or erythema Muscle: No response to sternal rub, voice, command Neuro: No eye opening, Pupils 3 mm nonreactive, Negative gag and cough reflex, No motor response deep pain all extremities. Ventriculostomy at 5cm H20 with bloody CSF drainage. ICP 4-5 range. (Anthony Bryan) Lab, Micro, Other Results Last Impressions Abdomen X-Ray 06/29/16 0000 Signed Impressions: Service Date/Time: Wednesday, June 29, 2016 13:08 - CONCLUSION: New air- filled loops of small bowel characteristic of a developing ileus. No evidence of pathologic distention, free air or mass effect. Micha Pool MD Chest X-Ray 06/28/16 0600 Signed Impressions: Service Date/Time: Tuesday, June 28, 2016 05:29 - CONCLUSION: The lungs are clear. Willem Coronado MD Head CT 06/26/16 0600 Signed Impressions: Service Date/Time: Sunday, June 26, 2016 05:50 - CONCLUSION: Interval placement of right ventriculostomy and suboccipital craniotomy. Cerebellar and intraventricular hemorrhages stable. Willem Coronado MD Laboratory Tests Test 06/28/16 06/29/16 06/29/16 06/29/16 18:00 00:15 05:20 13:23 Sodium Level 153 MEQ/L 154 MEQ/L 153 MEQ/L Serum Osmolality 319 MOSM/KG 322 MOSM/KG 320 MOSM/KG White Blood Count 9.0 TH/MM3 Red Blood Count 2.12 MIL/MM3 Hemoglobin 7.5 GM/DL Hematocrit 22.1 % Mean Corpuscular Volume 104.1 FL Mean Corpuscular Hemoglobin 35.4 PG Mean Corpuscular Hemoglobin 34.0 % Concent Red Cell Distribution Width 15.0 % Platelet Count 180 TH/MM3 Mean Platelet Volume 9.8 FL Neutrophils (%) (Auto) 80.1 % Lymphocytes (%) (Auto) 12.9 % Monocytes (%) (Auto) 4.5 % Eosinophils (%) (Auto) 1.7 % Basophils (%) (Auto) 0.8 % Neutrophils # (Auto) 7.2 TH/MM3 Lymphocytes # (Auto) 1.2 TH/MM3 Monocytes # (Auto) 0.4 TH/MM3 Eosinophils # (Auto) 0.2 TH/MM3 Basophils # (Auto) 0.1 TH/MM3 CBC Comment DIFF FINAL Differential Comment Potassium Level 3.9 MEQ/L Chloride Level 127 MEQ/L Carbon Dioxide Level 16.6 MEQ/L Anion Gap 9 MEQ/L Blood Urea Nitrogen 27 MG/DL Creatinine 1.09 MG/DL Estimat Glomerular Filtration 50 ML/MIN Rate Random Glucose 103 MG/DL Calcium Level 8.4 MG/DL Phosphorus Level 2.8 MG/DL Magnesium Level 2.3 MG/DL Total Bilirubin 0.9 MG/DL Aspartate Amino Transf 44 U/L (AST/SGOT) Alanine Aminotransferase 44 U/L (ALT/SGPT) Alkaline Phosphatase 193 U/L Total Protein 5.3 GM/DL Albumin 2.6 GM/DL Blood Type AB POSITIVE Antibody Screen NEGATIVE Crossmatch Leukocyte-Reduced Red Blood Cells Blood Bank Comment 06/28/16 06/28/16 06/29/16 15:00 23:00 07:00 Intake Total 1297 ml 2065 ml 1083 ml Output Total 566 ml 265 ml 524 ml Balance 731 ml 1800 ml 559 ml IV Total 1263 ml 1883 ml 853 ml Tube Feeding 34 ml 32 ml 80 ml Tube Irrigant 150 ml 150 ml Output Urine Total 520 ml 215 ml 350 ml Stool Total 100 ml Drainage Total 46 ml 50 ml 74 ml # Bowel Movements 0 1 (Anthony Bryan) Medical Decision Making Impression and Plan A: 1. Large cerebellar hemorrhage with intraventricular extension and brainstem compression associated with hydrocephalus. This appears to be very characteristic of a hypertensive bleed. s/p suboccipital craniectomy for cerebellar hemorrhage evacuation and ventriculostomy drain placement. 2. Unregulated hypertension 3. Respiratory failure. P: Continue with Neruo checks Continue with ICP monitoring and management Continue with critical care with vent management. (Anthony Bryan) Attending Statement The exam, history, and the medical decision-making described in the above note were completed with the assistance of the mid-level provider. I reviewed and agree with the findings presented. I attest that I had a [id number] encounter with the patient on the same day, and personally performed and documented my assessment and findings in the medical record. Neurologic exam essentially with no brainstem reflexes with some spontaneous respirations over the vent noted. I had a lengthy discussion with the health proxy and friends since there is no family members. We discussed her living well and her expressed wishes to the health proxy that if she cannot be 100% back to baseline that she would not want to continue with the life support measures or aggressive care. At this point given the very poor outlook for any functional recovery they're requesting that we withdraw ventilatory support and initiate comfort measures only. Accordingly we will honor her wishes. (Keon Luo MD) Anthony Bryan Jun 29, 2016 16:36 Keon Luo MD Jun 29, 2016 17:18
[2016-06-29] MEDS ORDERED: LORazepam 2 MG/ML VIAL IV ONE ×2 (17:45→18:00)
[2016-06-29] MEDS ORDERED: HYDROmorphone HCL PF 2 MG/ML VIAL IV ONE ×2 (17:45→18:00)
[2016-06-29] MEDS ORDERED: HYOSCYAMINE 0.5 MG/ML AMP IV ONE (17:45)
[2016-06-29] MEDS ORDERED: HYDROmorphone HCL PF 2 MG/ML VIAL IV PRN ×2 (18:15)
[2016-06-29] MEDS ORDERED: FUROSEMIDE 20 MG/2 ML VIAL IV PRN (18:15)
[2016-06-29] MEDS ORDERED: BISACODYL 10 MG SUPP PR PRN (18:15)
[2016-06-29] MEDS ORDERED: LORazepam 2 MG/ML VIAL IV PRN ×2 (18:15)
[2016-06-29] MEDS ORDERED: ACETAMINOPHEN 650 MG SUPP PR PRN (18:15)
[2016-06-29] MEDS ORDERED: LORazepam 2 MG/ML VIAL IVS PRN (18:15)
[2016-06-29] MEDS ORDERED: HYOSCYAMINE 0.5 MG/ML AMP IV PRN (18:15)
[2016-06-29] MEDS ORDERED: HYDROmorphone HCL PF 2 MG/ML VIAL IV SCH (20:00)
[2016-06-29] MEDS ORDERED: LORazepam 2 MG/ML VIAL IV SCH (20:00)
--- NOTE | 2016-06-29 20:20 | HHI.DS ---
Summary Note Date of : Jun 29, 2016 Time Of : 19:01 Admission Date Jun 25, 2016 at 11:07 Admitting Diagnosis intracranial hemorrhage. Hypertensive crisis. Diagnosis at Time of : (1) Intracranial hemorrhage ICD Code: I62.9 Diagnosis: Principal (2) Hypertensive crisis ICD Code: I16.9 Diagnosis: Principal (3) Respiratory failure ICD Code: J96.90 Diagnosis: Principal (4) Leukocytosis ICD Code: D72.829 Diagnosis: Principal (5) Hypokalemia ICD Code: E87.6 Diagnosis: Principal (6) Hyperglycemia ICD Code: R73.9 Diagnosis: Principal (7) Tobacco abuse ICD Code: Z72.0 Diagnosis: Principal (8) ETOHism ICD Code: F10.20 Diagnosis: Principal (9) Macrocytosis ICD Code: D75.89 Diagnosis: Principal Procedures suboccipital craniectomy with subdural evacuation/right mat hole placement secondary to Acute intracranial hemorrhage - lateral, third and fourth ventricles Subarachnoid hemorrhage posterior fossa with blood and the foramen magnum Brief History This is a 70-year-old female. Date of admission 06/25/2016. Asked medical history includes hypertension, prior CVA 4 years ago. According to friends at bedside, patient smokes one pack per day and has been drinking alcohol recently. She does not take any home medications. She presents to [facility] ED for stroke alert. She was last seen in her normal state of health approximately 9 AM. Patient was sitting with her friends at her condo and started complaining of headache. Patient started having slow slurred speech and right-sided weakness subsequently. EMS was called. Patient was brought to the ED for evaluation. Patient started having decreasing in mentation and speech on the way to the ED. Patient unresponsive upon arrival to the ED. Patient received 20 mg etomidate and was emergently intubated by ED physician. CT head performed stat revealed blood in the lateral, third and fourth ventricles, subarachnoid hemorrhage in the posterior fossa and blood and the foramen magnum. Neurosurgery was consulted and plans to go to the OR. 100 g of mannitol provided stat 1. Cardene drip initiated to maintain a systolic blood pressure less than 150. Upon examination, patient has a day, pinpoint sluggish pupils and withdraws to pain left greater right upper and lower extremity CBC/BMP: 06/29/16 0520 06/29/16 0520 Significant Findings Laboratory Tests Test 06/27/16 06/27/16 06/27/16 06/27/16 00:30 05:15 12:00 15:32 Sodium Level 154 MEQ/L 154 MEQ/L 156 MEQ/L 155 MEQ/L (136-145) (136-145) (136-145) (136-145) Serum Osmolality 321 MOSM/KG 323 MOSM/KG 323 MOSM/KG (275-295) (275-295) (275-295) White Blood Count 12.8 TH/MM3 (4.0-11.0) Red Blood Count 2.58 MIL/MM3 (4.00-5.30) Hemoglobin 9.0 GM/DL (11.6-15.3) Hematocrit 27.1 % (35.0-46.0) Mean Corpuscular Volume 105.0 FL (80.0-100.0) Mean Corpuscular Hemoglobin 34.8 PG (27.0-34.0) Chloride Level 128 MEQ/L (98-107) Carbon Dioxide Level 18.2 MEQ/L (21.0-32.0) Blood Urea Nitrogen 20 MG/DL (7-18) Creatinine 1.11 MG/DL (0.50-1.00) Estimat Glomerular Filtration 49 ML/MIN (>89) Rate Random Glucose 139 MG/DL (74-106) Calcium Level 8.0 MG/DL (8.5-10.1) Test 06/27/16 06/28/16 06/28/16 06/28/16 18:00 00:20 05:15 12:00 Sodium Level 155 MEQ/L 155 MEQ/L 153 MEQ/L 153 MEQ/L (136-145) (136-145) (136-145) (136-145) Serum Osmolality 324 MOSM/KG 323 MOSM/KG 321 MOSM/KG 323 MOSM/KG (275-295) (275-295) (275-295) (275-295) White Blood Count 13.7 TH/MM3 (4.0-11.0) Red Blood Count 2.63 MIL/MM3 (4.00-5.30) Hemoglobin 9.1 GM/DL (11.6-15.3) Hematocrit 27.5 % (35.0-46.0) Mean Corpuscular Volume 104.6 FL (80.0-100.0) Mean Corpuscular Hemoglobin 34.7 PG (27.0-34.0) Neutrophils (%) (Auto) 84.1 % (16.0-70.0) Neutrophils # (Auto) 11.5 TH/MM3 (1.8-7.7) Potassium Level 3.4 MEQ/L (3.5-5.1) Chloride Level 123 MEQ/L (98-107) Carbon Dioxide Level 15.8 MEQ/L (21.0-32.0) Blood Urea Nitrogen 22 MG/DL (7-18) Creatinine 1.09 MG/DL (0.50-1.00) Estimat Glomerular Filtration 50 ML/MIN (>89) Rate Random Glucose 129 MG/DL (74-106) Calcium Level 8.1 MG/DL (8.5-10.1) Aspartate Amino Transf 11 U/L (15-37) (AST/SGOT) Total Protein 6.1 GM/DL (6.4-8.2) Albumin 2.8 GM/DL (3.4-5.0) Test 06/28/16 06/29/16 06/29/16 18:00 00:15 05:20 Sodium Level 153 MEQ/L 154 MEQ/L 153 MEQ/L (136-145) (136-145) (136-145) Serum Osmolality 319 MOSM/KG 322 MOSM/KG 320 MOSM/KG (275-295) (275-295) (275-295) Red Blood Count 2.12 MIL/MM3 (4.00-5.30) Hemoglobin 7.5 GM/DL (11.6-15.3) Hematocrit 22.1 % (35.0-46.0) Mean Corpuscular Volume 104.1 FL (80.0-100.0) Mean Corpuscular Hemoglobin 35.4 PG (27.0-34.0) Neutrophils (%) (Auto) 80.1 % (16.0-70.0) Chloride Level 127 MEQ/L (98-107) Carbon Dioxide Level 16.6 MEQ/L (21.0-32.0) Blood Urea Nitrogen 27 MG/DL (7-18) Creatinine 1.09 MG/DL (0.50-1.00) Estimat Glomerular Filtration 50 ML/MIN (>89) Rate Calcium Level 8.4 MG/DL (8.5-10.1) Aspartate Amino Transf 44 U/L (15-37) (AST/SGOT) Alkaline Phosphatase 193 U/L (45-117) Total Protein 5.3 GM/DL (6.4-8.2) Albumin 2.6 GM/DL (3.4-5.0) Imaging Last Impressions Abdomen X-Ray 06/29/16 0000 Signed Impressions: Service Date/Time: Wednesday, June 29, 2016 13:08 - CONCLUSION: New air- filled loops of small bowel characteristic of a developing ileus. No evidence of pathologic distention, free air or mass effect. Micha Pool MD Chest X-Ray 06/28/16 0600 Signed Impressions: Service Date/Time: Tuesday, June 28, 2016 05:29 - CONCLUSION: The lungs are clear. Willem Coronado MD Head CT 06/26/16 0600 Signed Impressions: Service Date/Time: Sunday, June 26, 2016 05:50 - CONCLUSION: Interval placement of right ventriculostomy and suboccipital craniotomy. Cerebellar and intraventricular hemorrhages stable. Willem Coronado MD Hospital Course Postop day 4 suboccipital craniectomy with subdural evacuation/right mat hole placement secondary to Acute intracranial hemorrhage - lateral, third and fourth ventricles Subarachnoid hemorrhage posterior fossa with blood and the foramen magnum EtOH Patient is currently on propofol and fentanyl drips for sedation/analgesia while intubated Goal of RASS -2 Daily sedation vacation per neurosurgery CT head on admission revealed blood in the lateral, third and fourth ventricle. Subarachnoid hemorrhage within the posterior fossa and blood in the foramen magnum. Neurosurgery/Dr. Luo following Discontinued mannitol and 3% saline goal sodium 150-155 and serum osm ~ 310 Thiamine/multivitamin and folate daily for EtOH. CV: Hypertensive emergency History of hypertension Grade 2 diastolic dysfunction Patient currently on Cleviprex drip at 4 mg an hour to maintain systolic blood pressure less than 150. Titrate Check 2-D echocardiogram.- EF 55-60%. Trace MR/TR. Mild LVH. Grade 2 diastolic dysfunction. As needed labetalol in attempt to wean off Cardene drip. Scheduled 10 mg daily Norvasc, hydralazine 25 mill grams every 8, Isordil 20 milligrams every 8 and clonidine 0.1 milligrams 3 times a day in attempt to wean Patient not on any home antihypertensives. Resp: Acute respiratory failure secondary to hemorrhagic CVA Tobaccoism PRVC 15/tidal volume around 450///40 Ventilator bundle Bronchodilator therapy as needed Tobacco cessation education was provided when appropriate Chest x-ray 06/28 reveals no acute cardio primary findings GI: Mild ileus Initiate tube feeding with vital 1.5 goal 50 cc an hour. High residuals. Started Reglan 10 every 8 for prokinetic agent Protonix for GI prophylaxis while intubated Colace/ Senokot twice a day for bowel regimen MiraLAX twice a day/lactulose 4 times a day/mineral oil 1 initiated Check KUB on one slice and revealed mild/developing ileus. Air in colon. 100 cc stool. : Tovar be placed for accurate I's and O's in critically ill patient Endo: Hyperglycemia Sliding-scale insulin with Accu-Cheks every 6 to maintain euglycemia. Moderate regimen. Follow-up on hemoglobin A1c Renal: Acute kidney injury creatinine 1.2 Patient will be hydrated with normal saline at 84 cc an hour. Monitor Urine output closely. Avoid nephrotoxic drugs Heme: Leukocytosis Macrocytic anemia Likely leukemoid type reaction. Monitor CBC in a.m. Coags normal Investigate macrocytosis with B12, folate and TSH and peripheral smear if indicated. ID: Monitor for infection UA reveals no etiology FEN: Hypernatremia Replace electrolytes per ICU electrolyte protocol. MSK: PT/OT evaluate and treat Critical Care: The total critical care time was 35 minutes. Time to perform other separately billable procedures was not included in the critical care time. Discussed with Ivon Carvajal, healthcare proxy. Request withdrawal of care. Signed with Dr. Puja hernandez who concurs. Plan for extubation today. Kareem Zavala MD Jun 29, 2016 20:20
[2016-06-29] MEDS ORDERED: ISOSORBIDE DINITRATE 20 MG TAB PO SCH (22:00)
[2016-06-29] MEDS ORDERED: RESP: ALBUTEROL 2.5 MG/IPRATROPIUM 0.5 MG NEB (SCH) NEB (22:00)
== END 2016-06-29 21:02 | disposition expired | DRG 23 ==
LOC: NEPC 09:53 → NEDA 11:07 → N03A 17:44
PROVIDERS: ADMIT Internal Medicine Critical Care Medicine; ATTEND Internal Medicine Critical Care Medicine
PROC: 009630Z Drainage of Cerebral Ventricle with Drainage Device, Percutaneous Approach (ICD-10-PCS; 2016-06-25)
PROC: 0BH17EZ Insertion of Endotracheal Airway into Trachea, Via Natural or Artificial Opening (ICD-10-PCS; 2016-06-25)
PROC: 5A1955Z Respiratory Ventilation, Greater than 96 Consecutive Hours (ICD-10-PCS; 2016-06-25)
PROC: 00CC0ZZ Extirpation of Matter from Cerebellum, Open Approach (ICD-10-PCS; principal; 2016-06-25 12:02)
DX: I61.4 Nontraumatic intracerebral hemorrhage in cerebellum (principal); J96.00 Acute respiratory failure, unspecified whether with hypoxia or hypercapnia; Z51.5 Encounter for palliative care; G93.5 Compression of brain; N17.9 Acute kidney failure, unspecified; G91.9 Hydrocephalus, unspecified; E87.0 Hyperosmolality and hypernatremia; K56.7 Ileus, unspecified; I16.1 Hypertensive emergency; I10 Essential (primary) hypertension; R29.810 Facial weakness; R47.81 Slurred speech; I60.9 Nontraumatic subarachnoid hemorrhage, unspecified; R73.9 Hyperglycemia, unspecified; E87.6 Hypokalemia; R40.20 Unspecified coma; D72.829 Elevated white blood cell count, unspecified; D75.89 Other specified diseases of blood and blood-forming organs; D53.9 Nutritional anemia, unspecified; F10.20 Alcohol dependence, uncomplicated; F17.210 Nicotine dependence, cigarettes, uncomplicated; Z86.73 Personal history of transient ischemic attack (TIA), and cerebral infarction without residual deficits
CPT/HCPCS: 31500; 51702; 70450; 71010; 74000; 80048; 80053; 80061; 80307; 81001; 82435; 82550; 82565; 82805; 82947; 82948; 83036; 83605; 83735; 83930; 84100; 84132; 84295; 84443; 84484; 84520; 84702; 85007; 85025; 85027; 85384; 85610; 85730; 86850; 86900; 86901; 86920; 87641; 88304; 88307; 93005; 93306; 94002; 94003; 94729; 94770; 96374; 96375; C1713; C9113; C9248; J0690; J1170; J1580; J1953; J1980; J2060; J2150; J2212; J2370; J2405; J2765; J3010; J3370; J3411; J3475; J3480; J7030; J7050; P9047